=== PATIENT | male | born 1985 | race African-American/Black ===

== ENCOUNTER 2017-02-01 16:28 | Inpatient (IN) ==
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
[2017-02-01] MEDS ORDERED: ONDANSETRON 4 MG/2 ML VIAL IV PRN (19:16)
[2017-02-01] MEDS: DEXTROSE 5% NACL 0.45% 1,000 ML IV SCH (19:56)
[2017-02-01] MEDS: MEROPENEM 1,000 MG in SODIUM CHLORIDE 0.9% 100 ML IV SCH (19:56)
[2017-02-01] MEDS: ACETAMINOPHEN 325 MG/10.15 ML UDCUP PO PRN (19:58)
[2017-02-01 20:37] LABS: Apearance,Urine Slightly Hazy (Clear); Bilirubin,Urine Negative (Negative); Blood, Urine Negative (Negative); Glucose,Urine (UA) Negative (Negative); Granular Casts,Urine 2 /LPF (0-1); Hyaline Casts,Urine 2 /LPF (0-3); Ketones,Urine 20 mg/dL (Negative); Mucus,Urine Few /LPF (Occasional); Nitrite,Urine Positive (Negative); Protein,Urine 100 MG/DL; RBC,Urine 110 /HPF (0-4); Urine Color Amber (Yellow); Urine Urobilinogen < 2.0 EU/DL (0.2-1.0); WBC,Urine 44 /HPF (0-6)
[2017-02-01] MEDS: VANCOMYCIN INJ 1,000 MG in SODIUM CHLORIDE 0.9% 250 ML IV SCH (20:51)
[2017-02-01] MEDS: MAGNESIUM OXIDE 400 MG TABLET PEG SCH (20:51)
[2017-02-01] MEDS: cloNIDine 0.1 MG TABLET PEG SCH (20:51)
[2017-02-01] MEDS: VALPROIC ACID 250 MG/5 ML UDCUP PO SCH (20:51)
[2017-02-01] MEDS: GABAPENTIN 50 MG/ML 30 ML/BOTTLE PO SCH (20:56)
[2017-02-02] MEDS: ALBUTEROL/IPRATROPIUM 3 ML NEB RESP TX PRN (00:20)
[2017-02-02 00:59] LABS: Osmolality,Calculated 271.8 MOS/KG (273-304); Potassium 3.9 MMOL/L (3.5-5.1)
[2017-02-02] MEDS: MEROPENEM 1,000 MG in SODIUM CHLORIDE 0.9% 100 ML IV SCH ×3 (03:41→18:17)
[2017-02-02] MEDS: ALBUTEROL/IPRATROPIUM 3 ML NEB RESP TX SCH ×6 (03:42→23:10)
[2017-02-02 06:55] LABS: Basophils % 0.2 % (0.0-0.8); Eosinophils % 0.2 % (0.00-10.9); Hematocrit 31.9 VOL% (42.0-52.0); Hemoglobin 10.6 GM/DL (14.0-18.0); Immature Granulocytes % 0.6 %; Immature Granulocytes Absolute 0.07 #; Lymphocytes # 1.1 10*3/uL (1.4-4.0); Mean Corpuscular HGB Conc 33.2 GM/DL (32-36); Mean Corpuscular Hemoglobin 27 PG (27-34); Mean Corpuscular Volume 80.8 FL (87-102); Mean Platelet Volume 11.2 FL (9.6-12.0); Monocytes # 0.7 10*3/uL (0.11-0.8); Monocytes % 5.8 % (1.7-12.7); Neutrophils # 10.5 10*3/uL (1.4-7.4); Neutrophils % 84.2 % (38.7-73.9); Platelet Count 194 T/CUMM (130-400); Red Blood Count 3.95 MC/CUMM (3.8-5.5); Red Cell Distribution Width 16.2 % (9.3-17.3); White Blood Count 12.5 T/CUMM (4-12)
--- NOTE | 2017-02-02 07:06 | XRay Report ---
Referring Physician: Micky Macdonald Exam: XR chest 1V portable Date: February 02, 2017 at 12:09 AM Reason: Shortness of breath Comparison: Chest one view portable November 26, 2016 Findings: The cardiac silhouette is upper normal in size. A line again projects at the chest and may represent a cardiac lead. There is hazy density within the right lung, likely representing atelectasis and layering pleural fluid. However, there could also be pneumonia. Opacities are also seen at the left lung base and could represent atelectasis or pneumonia. No pneumothorax is identified. The osseous structures appear stable with surgical fusion of the cervical spine. Impression: There is diffuse hazy density at the right lung, likely representing a combination of layering pleural fluid and atelectasis. However, there could also be pneumonia. There are also opacities at the left lung base which could represent atelectasis or pneumonia. PROCEDURE INTERPRETED AT [facility] DEPARTMENT OF RADIOLOGY Final Report Signed by: Dr. Michele Gould
[2017-02-02 07:17] LABS: Hypochromasia 1+
[2017-02-02 07:18] LABS: Microcytosis 1+; Platelet Estimate Adequate; Target Cells Slight
[2017-02-02 07:29] LABS: Albumin 3.1 G/DL (3.4-5.0); Bilirubin,Total 0.8 MG/DL (0.2-1.0); Calcium 8.6 MG/DL (8.5-10.1); Osmolality,Calculated 273.7 MOS/KG (273-304); Potassium 3.9 MMOL/L (3.5-5.1); Total Protein 7.2 G/DL (6.4-8.3)
--- NOTE | 2017-02-02 08:00 | XRay Report ---
Referring Physician: Sacha Black MD Exam: XR chest 1V portable Date: February 02, 2017 at 5:33 AM Reason: Pneumonia Comparison: Chest one view portable February 02, 2017 at 12:09 AM Findings: The heart is stable in size. A lead again projects at the chest and may represent a cardiac lead. There are opacities within both lower lung zones, mainly on the right. This is concerning for atelectasis and possibly pneumonia. There is also mild right pleural fluid. No pneumothorax is identified. The osseous structures appear stable. Impression: There has been no significant change when considering differences in patient positioning. PROCEDURE INTERPRETED AT [facility] DEPARTMENT OF RADIOLOGY Final Report Signed by: Dr. Michele Gould
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
[2017-02-02] MEDS: VALPROIC ACID 250 MG/5 ML UDCUP PO SCH ×2 (08:35→20:50)
[2017-02-02] MEDS: LANSOPRAZOLE ODT 30 MG TABLET PEG SCH (08:36)
[2017-02-02] MEDS: MAGNESIUM OXIDE 400 MG TABLET PEG SCH ×3 (08:36→20:50)
[2017-02-02] MEDS: MULTIVITAMIN LIQUID (CENTRUM) 60 ML BOTTLE PEG SCH (08:36)
[2017-02-02] MEDS: ASPIRIN 325 MG TABLET PEG SCH (08:36)
[2017-02-02] MEDS: ZINC GLUCONATE 50 MG TABLET PEG SCH (08:36)
[2017-02-02] MEDS: POTASSIUM CHLORIDE 8 MEQ CAPSULE PO SCH (08:36)
[2017-02-02] MEDS: GABAPENTIN 50 MG/ML 30 ML/BOTTLE PO SCH ×3 (08:43→21:39)
[2017-02-02] MEDS: VANCOMYCIN INJ 1,000 MG in SODIUM CHLORIDE 0.9% 250 ML IV SCH ×2 (08:43→20:47)
[2017-02-02] MEDS: methylPREDNISolone SOD SUC 40 MG/1 ML VIAL IV SCH ×2 (08:43→20:44)
[2017-02-02] MEDS: ACETAMINOPHEN 325 MG/10.15 ML UDCUP PO PRN (12:06)
[2017-02-02] MEDS: DEXTROSE 5% NACL 0.45% 1,000 ML IV SCH (16:47)
[2017-02-02] MEDS: DORNASE ALFA 2.5 MG/2.5 ML VIAL RESP TX SCH (18:40)
[2017-02-02] MEDS: cloNIDine 0.1 MG TABLET PEG SCH (20:50)
[2017-02-03] MEDS: DEXTROSE 5% NACL 0.45% 1,000 ML IV SCH (01:37)
[2017-02-03] MEDS: ALBUTEROL/IPRATROPIUM 3 ML NEB RESP TX SCH ×6 (03:10→23:00)
[2017-02-03] MEDS: MEROPENEM 1,000 MG in SODIUM CHLORIDE 0.9% 100 ML IV SCH ×3 (04:46→18:22)
[2017-02-03] MEDS: DORNASE ALFA 2.5 MG/2.5 ML VIAL RESP TX SCH ×2 (07:45→18:30)
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
[2017-02-03] MEDS: MAGNESIUM OXIDE 400 MG TABLET PEG SCH ×3 (10:03→21:26)
[2017-02-03] MEDS: POTASSIUM CHLORIDE 8 MEQ CAPSULE PO SCH (10:03)
[2017-02-03] MEDS: LANSOPRAZOLE ODT 30 MG TABLET PEG SCH (10:03)
[2017-02-03] MEDS: MULTIVITAMIN LIQUID (CENTRUM) 60 ML BOTTLE PEG SCH (10:03)
[2017-02-03] MEDS: ZINC GLUCONATE 50 MG TABLET PEG SCH (10:03)
[2017-02-03] MEDS: ASPIRIN 325 MG TABLET PEG SCH (10:03)
[2017-02-03] MEDS: methylPREDNISolone SOD SUC 40 MG/1 ML VIAL IV SCH ×2 (10:04→21:25)
[2017-02-03] MEDS: GABAPENTIN 50 MG/ML 30 ML/BOTTLE PO SCH ×3 (10:04→21:44)
[2017-02-03] MEDS: VALPROIC ACID 250 MG/5 ML UDCUP PO SCH ×2 (10:04→21:27)
[2017-02-03] MEDS: VANCOMYCIN INJ 1,000 MG in SODIUM CHLORIDE 0.9% 250 ML IV SCH ×2 (10:06→21:25)
[2017-02-03] MEDS ORDERED: VANCOMYCIN INJ 750 MG in SODIUM CHLORIDE 0.9% 250 ML IV ONE (12:00)
[2017-02-03] MEDS: cloNIDine 0.1 MG TABLET PEG SCH (21:26)
[2017-02-04] MEDS: DEXTROSE 5% NACL 0.45% 1,000 ML IV SCH ×2 (00:56→21:17)
[2017-02-04] MEDS: ALBUTEROL/IPRATROPIUM 3 ML NEB RESP TX SCH ×6 (03:10→23:00)
[2017-02-04 06:35] LABS: Calcium 9.2 MG/DL (8.5-10.1); Magnesium 2.3 MG/DL (1.8-2.4); Osmolality,Calculated 275.7 MOS/KG (273-304); Potassium 4.4 MMOL/L (3.5-5.1)
[2017-02-04] MEDS: DORNASE ALFA 2.5 MG/2.5 ML VIAL RESP TX SCH ×2 (07:43→18:40)
[2017-02-04] MEDS: VANCOMYCIN INJ 1,000 MG in SODIUM CHLORIDE 0.9% 250 ML IV SCH ×3 (07:58→22:48)
[2017-02-04] MEDS: MEROPENEM 1,000 MG in SODIUM CHLORIDE 0.9% 100 ML IV SCH ×3 (07:58→18:09)
[2017-02-04] MEDS: POTASSIUM CHLORIDE 8 MEQ CAPSULE PO SCH (10:13)
[2017-02-04] MEDS: methylPREDNISolone SOD SUC 40 MG/1 ML VIAL IV SCH ×2 (10:13→21:17)
[2017-02-04] MEDS: VALPROIC ACID 250 MG/5 ML UDCUP PO SCH ×2 (10:13→21:19)
[2017-02-04] MEDS: ASPIRIN 325 MG TABLET PEG SCH (10:13)
[2017-02-04] MEDS: MAGNESIUM OXIDE 400 MG TABLET PEG SCH ×3 (10:14→21:19)
[2017-02-04] MEDS: LANSOPRAZOLE ODT 30 MG TABLET PEG SCH (10:14)
[2017-02-04] MEDS: ZINC GLUCONATE 50 MG TABLET PEG SCH (10:14)
[2017-02-04] MEDS: MULTIVITAMIN LIQUID (CENTRUM) 60 ML BOTTLE PEG SCH (10:15)
[2017-02-04] MEDS: GABAPENTIN 50 MG/ML 30 ML/BOTTLE PO SCH ×3 (11:50→21:20)
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
--- NOTE | 2017-02-04 14:03 | XRay Report ---
Referring Physician: Sacha Black MD Exam: XR chest 1V portable Date: February 04, 2017 at 6:17 AM Reason: Right lower lobe pneumonia Comparison: Chest one view portable February 02, 2017 Findings: The cardiac silhouette is upper normal in size, and a probable cardiac lead is again in place. Opacities are seen within both lower lung zones, mainly on the right. This is concerning for atelectasis and likely pneumonia. No pneumothorax is identified, but minimal right pleural fluid is suspected. The osseous structures appear stable with surgical fusion of the cervical spine. Impression: There has been no significant change. PROCEDURE INTERPRETED AT [facility] DEPARTMENT OF RADIOLOGY Final Report Signed by: Dr. Michele Gould
[2017-02-04] MEDS: cloNIDine 0.1 MG TABLET PEG SCH (21:19)
[2017-02-05] MEDS: ALBUTEROL/IPRATROPIUM 3 ML NEB RESP TX SCH ×6 (03:00→22:27)
[2017-02-05] MEDS: MEROPENEM 1,000 MG in SODIUM CHLORIDE 0.9% 100 ML IV SCH ×3 (03:49→18:24)
[2017-02-05] MEDS: VANCOMYCIN INJ 1,000 MG in SODIUM CHLORIDE 0.9% 250 ML IV SCH ×3 (06:47→23:20)
[2017-02-05] MEDS: ALBUTEROL/IPRATROPIUM 3 ML NEB RESP TX PRN ×2 (06:55→11:15)
[2017-02-05] MEDS: DORNASE ALFA 2.5 MG/2.5 ML VIAL RESP TX SCH ×2 (06:55→19:17)
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
[2017-02-05] MEDS: POTASSIUM CHLORIDE 8 MEQ CAPSULE PO SCH (09:11)
[2017-02-05] MEDS: VALPROIC ACID 250 MG/5 ML UDCUP PO SCH ×2 (09:11→21:40)
[2017-02-05] MEDS: ZINC GLUCONATE 50 MG TABLET PEG SCH (09:11)
[2017-02-05] MEDS: ASPIRIN 325 MG TABLET PEG SCH (09:11)
[2017-02-05] MEDS: MAGNESIUM OXIDE 400 MG TABLET PEG SCH ×3 (09:11→21:40)
[2017-02-05] MEDS: LANSOPRAZOLE ODT 30 MG TABLET PEG SCH (09:12)
[2017-02-05] MEDS: MULTIVITAMIN LIQUID (CENTRUM) 60 ML BOTTLE PEG SCH (09:12)
[2017-02-05] MEDS: GABAPENTIN 50 MG/ML 30 ML/BOTTLE PO SCH ×3 (09:12→21:41)
[2017-02-05] MEDS: methylPREDNISolone SOD SUC 40 MG/1 ML VIAL IV SCH (09:25)
[2017-02-05] MEDS: DEXTROSE 5% NACL 0.45% 1,000 ML IV SCH (17:46)
[2017-02-05] MEDS: ACETAMINOPHEN 325 MG/10.15 ML UDCUP PO PRN (20:50)
[2017-02-05] MEDS: cloNIDine 0.1 MG TABLET PEG SCH (21:40)
[2017-02-06] MEDS: ALBUTEROL/IPRATROPIUM 3 ML NEB RESP TX SCH ×6 (02:56→23:39)
[2017-02-06] MEDS: MEROPENEM 1,000 MG in SODIUM CHLORIDE 0.9% 100 ML IV SCH ×3 (03:47→18:23)
[2017-02-06] MEDS: DEXTROSE 5% NACL 0.45% 1,000 ML IV SCH ×2 (03:52→14:47)
[2017-02-06] MEDS: VANCOMYCIN INJ 1,000 MG in SODIUM CHLORIDE 0.9% 250 ML IV SCH ×3 (06:30→23:17)
[2017-02-06] MEDS: ZINC GLUCONATE 50 MG TABLET PEG SCH (08:49)
[2017-02-06] MEDS: VALPROIC ACID 250 MG/5 ML UDCUP PO SCH ×2 (08:49→21:24)
[2017-02-06] MEDS: LANSOPRAZOLE ODT 30 MG TABLET PEG SCH (08:49)
[2017-02-06] MEDS: ASPIRIN 325 MG TABLET PEG SCH (08:49)
[2017-02-06] MEDS: MAGNESIUM OXIDE 400 MG TABLET PEG SCH ×3 (08:50→21:24)
[2017-02-06] MEDS: POTASSIUM CHLORIDE 8 MEQ CAPSULE PO SCH (08:50)
[2017-02-06] MEDS: MULTIVITAMIN LIQUID (CENTRUM) 60 ML BOTTLE PEG SCH (08:50)
[2017-02-06] MEDS: methylPREDNISolone SOD SUC 40 MG/1 ML VIAL IV SCH (08:50)
[2017-02-06] MEDS: GABAPENTIN 50 MG/ML 30 ML/BOTTLE PO SCH ×3 (08:50→21:23)
--- NOTE | 2017-02-06 10:16 | Pulmonology Progress Note ---
Pulmonary - PN: Subj Interval history: Patient with quadraplegia, admitted for pneumonia and UTI. Clinically doing better, has a hard time coughing up sputum but doing a little better Exam (Progress Note) - Constitutional Vitals: Period Temp Pulse Resp BP Sys/Kwan Pulse Ox Last 24 Hr 97.8 F-100.7 F 70-128 18-20 101-126/59-87 92-99 General appearance: no acute distress - Head Head exam: Present: normal inspection - Eye Eye exam: Present: EOMI - Neck Neck exam: Present: normal inspection - Respiratory Respiratory exam: Present: clear to auscultation bilaterally - Cardiovascular Cardiovascular exam: Present: regular rate and rhythm Results - Labs CBC & BMP: 02/02/17 06:38 02/04/17 04:00 Lab Results: I have reviewed the past 24 hour labs Assessment and Plan (1) Urinary tract infection Status: Acute Assessment and plan: covered by current antibxs Current Visit: No (2) Quadriplegia Status: Chronic Current Visit: No (3) RLL pneumonia Status: Acute Assessment and plan: Improving with antibiotics. Continue current care for now Current Visit: Yes
[2017-02-06] MEDS: ACETAMINOPHEN 325 MG/10.15 ML UDCUP PO PRN (13:12)
[2017-02-06] MEDS: cloNIDine 0.1 MG TABLET PEG SCH (21:25)
[2017-02-07] MEDS: MEROPENEM 1,000 MG in SODIUM CHLORIDE 0.9% 100 ML IV SCH ×3 (03:18→18:08)
[2017-02-07] MEDS: ALBUTEROL/IPRATROPIUM 3 ML NEB RESP TX SCH ×6 (04:34→23:25)
[2017-02-07] MEDS: VANCOMYCIN INJ 1,000 MG in SODIUM CHLORIDE 0.9% 250 ML IV SCH ×3 (06:32→23:56)
[2017-02-07] MEDS: ASPIRIN 325 MG TABLET PEG SCH (08:54)
[2017-02-07] MEDS: MULTIVITAMIN LIQUID (CENTRUM) 60 ML BOTTLE PEG SCH (08:55)
[2017-02-07] MEDS: LANSOPRAZOLE ODT 30 MG TABLET PEG SCH (08:55)
[2017-02-07] MEDS: ZINC GLUCONATE 50 MG TABLET PEG SCH (08:55)
[2017-02-07] MEDS: MAGNESIUM OXIDE 400 MG TABLET PEG SCH ×3 (08:55→21:03)
[2017-02-07] MEDS: POTASSIUM CHLORIDE 8 MEQ CAPSULE PO SCH (08:55)
[2017-02-07] MEDS: VALPROIC ACID 250 MG/5 ML UDCUP PO SCH ×2 (08:55→21:03)
[2017-02-07] MEDS: GABAPENTIN 50 MG/ML 30 ML/BOTTLE PO SCH ×3 (08:55→21:02)
[2017-02-07] MEDS: methylPREDNISolone SOD SUC 40 MG/1 ML VIAL IV SCH (08:56)
[2017-02-07] MEDS: DEXTROSE 5% NACL 0.45% 1,000 ML IV SCH (08:57)
--- NOTE | 2017-02-07 11:19 | XRay Report ---
History: Right lower lobe pneumonia Date: 02/07/2017 Study: Chest x-ray AP portable Comparison exam: February 04, 2017 The left subclavian venous access catheter is stable in position. The cardiomediastinal silhouette is unchanged. There is some continued atelectasis/infiltrate in the right lower lung, thought to be improved when allowing for differences in inspiration and technique and rotation. There may be some mild pleural effusion on the right. The left lung is clear. Osseous structures are unchanged. Impression: Persistent but probably improved right lower lobe pneumonia PROCEDURE INTERPRETED AT [facility] DEPARTMENT OF RADIOLOGY Final Report Signed by: Dr. Velia Rawls
--- NOTE | 2017-02-07 11:37 | Pulmonology Progress Note ---
Pulmonary - PN: Subj Interval history: Patient doing well, no complaints, no overnight events Exam (Progress Note) - Constitutional Vitals: Period Temp Pulse Resp BP Sys/Kwan Pulse Ox Last 24 Hr 97.3 F-100.3 F 69-111 18-24 106-141/60-92 93-99 General appearance: no acute distress - Respiratory Respiratory exam: Absent: accessory muscle use, stridor, wheezes - Cardiovascular Cardiovascular exam: Present: regular rate and rhythm Results - Labs CBC & BMP: 02/02/17 06:38 02/04/17 04:00 Lab Results: I have reviewed the past 24 hour labs Assessment and Plan (1) Urinary tract infection Status: Acute Assessment and plan: covered by current antibxs Current Visit: No (2) Quadriplegia Status: Chronic Current Visit: No (3) RLL pneumonia Status: Acute Assessment and plan: Improving with antibiotics. Continue current care for now Current Visit: Yes
[2017-02-07] MEDS: cloNIDine 0.1 MG TABLET PEG SCH (21:03)
[2017-02-08] MEDS: ALBUTEROL/IPRATROPIUM 3 ML NEB RESP TX SCH ×5 (03:14→19:40)
[2017-02-08] MEDS: MEROPENEM 1,000 MG in SODIUM CHLORIDE 0.9% 100 ML IV SCH ×3 (03:50→18:04)
[2017-02-08 06:32] LABS: Basophils % 0.1 % (0.0-0.8); Eosinophils % 0.1 % (0.00-10.9); Hematocrit 33.8 VOL% (42.0-52.0); Immature Granulocytes % 1.9 %; Immature Granulocytes Absolute 0.21 #; Lymphocytes # 2.3 10*3/uL (1.4-4.0); Lymphocytes % 20.5 % (21.2-54.2); Mean Corpuscular HGB Conc 32.5 GM/DL (32-36); Mean Corpuscular Hemoglobin 27 PG (27-34); Mean Platelet Volume 9.6 FL (9.6-12.0); Monocytes # 0.8 10*3/uL (0.11-0.8); Monocytes % 6.9 % (1.7-12.7); NRBC # 0.08 10*3/uL; Neutrophils % 70.5 % (38.7-73.9); Platelet Count 299 T/CUMM (130-400); Red Blood Count 4.12 MC/CUMM (3.8-5.5); Red Cell Distribution Width 16.4 % (9.3-17.3); White Blood Count 11.3 T/CUMM (4-12)
[2017-02-08] MEDS: DEXTROSE 5% NACL 0.45% 1,000 ML IV SCH (06:56)
[2017-02-08] MEDS: VANCOMYCIN INJ 1,000 MG in SODIUM CHLORIDE 0.9% 250 ML IV SCH ×3 (06:57→23:36)
[2017-02-08 07:06] LABS: Calcium 8.9 MG/DL (8.5-10.1); Magnesium 2.4 MG/DL (1.8-2.4); Osmolality,Calculated 270.8 MOS/KG (273-304); Potassium 4.3 MMOL/L (3.5-5.1)
[2017-02-08] MEDS: MULTIVITAMIN LIQUID (CENTRUM) 60 ML BOTTLE PEG SCH (07:59)
[2017-02-08] MEDS: methylPREDNISolone SOD SUC 40 MG/1 ML VIAL IV SCH (08:01)
[2017-02-08] MEDS: ZINC GLUCONATE 50 MG TABLET PEG SCH (08:01)
[2017-02-08] MEDS: LANSOPRAZOLE ODT 30 MG TABLET PEG SCH (08:01)
[2017-02-08] MEDS: GABAPENTIN 50 MG/ML 30 ML/BOTTLE PO SCH ×3 (08:01→20:57)
[2017-02-08] MEDS: POTASSIUM CHLORIDE 8 MEQ CAPSULE PO SCH (08:02)
[2017-02-08] MEDS: ASPIRIN 325 MG TABLET PEG SCH (08:02)
[2017-02-08] MEDS: MAGNESIUM OXIDE 400 MG TABLET PEG SCH ×3 (08:02→20:56)
[2017-02-08] MEDS: VALPROIC ACID 250 MG/5 ML UDCUP PO SCH ×2 (08:02→20:56)
--- NOTE | 2017-02-08 14:25 | Pulmonology Progress Note ---
Pulmonary - PN: Subj Interval history: Patient states breathing is ok today. Does complain that his hands are hot. Mother at bedside, was concerned about his inability to cough up secretions. Discussed this at length. Patient overall improving Exam (Progress Note) - Constitutional Vitals: Period Temp Pulse Resp BP Sys/Kwan Pulse Ox Last 24 Hr 97.2 F-98.9 F 74-132 17-22 89-129/63-90 93-99 General appearance: no acute distress - Head Head exam: Present: normal inspection - Respiratory Respiratory exam: Absent: accessory muscle use, stridor, wheezes - Cardiovascular Cardiovascular exam: Present: regular rate and rhythm - GI/Abdominal GI/Abdominal exam: Present: soft Results - Labs CBC & BMP: 02/08/17 06:11 02/08/17 06:11 Lab Results: I have reviewed the past 24 hour labs - Diagnostic Findings Procedure: Chest x-ray: image reviewed by me, report reviewed by me (reviewed from yesterday) Assessment and Plan (1) Urinary tract infection Status: Acute Assessment and plan: covered by current antibxs Current Visit: No (2) Quadriplegia Status: Chronic Current Visit: No (3) RLL pneumonia Status: Acute Assessment and plan: Improving with antibiotics. Continue current care for now. Patient getting CPT with nebs to help with clearance. Current Visit: Yes
[2017-02-08] MEDS: cloNIDine 0.1 MG TABLET PEG SCH (21:54)
[2017-02-09] MEDS: ALBUTEROL/IPRATROPIUM 3 ML NEB RESP TX SCH ×6 (00:20→20:00)
[2017-02-09] MEDS: MEROPENEM 1,000 MG in SODIUM CHLORIDE 0.9% 100 ML IV SCH ×3 (03:45→18:10)
[2017-02-09] MEDS: DEXTROSE 5% NACL 0.45% 1,000 ML IV SCH ×2 (06:03→21:55)
--- NOTE | 2017-02-09 06:39 | XRay Report ---
XR chest 1V portable Indication: Right lower lobe pneumonia. Comparison: Chest x-ray 02/07/2017 Technique: Portable AP chest was performed. Findings: Some improvement in aeration of the left cardiophrenic angle is demonstrated. Haziness in the right lung base as well as elevation of the right hemidiaphragm remain present. Chest otherwise demonstrates little change. Impression: 1. Minimal improvement in aeration of the left cardiophrenic angle is demonstrated. 2. Little change within the right lung base is suggested. 02/09/2017 6:36 AM PROCEDURE INTERPRETED AT [facility] DEPARTMENT OF RADIOLOGY Final Report Signed by: Dr. Otto Boyd
[2017-02-09] MEDS: VANCOMYCIN INJ 1,000 MG in SODIUM CHLORIDE 0.9% 250 ML IV SCH ×3 (06:41→23:17)
[2017-02-09 06:45] LABS: Calcium 8.9 MG/DL (8.5-10.1); Magnesium 2.4 MG/DL (1.8-2.4); Osmolality,Calculated 266.1 MOS/KG (273-304); Potassium 4.3 MMOL/L (3.5-5.1)
[2017-02-09] MEDS: GABAPENTIN 50 MG/ML 30 ML/BOTTLE PO SCH ×3 (08:26→21:40)
[2017-02-09] MEDS: MULTIVITAMIN LIQUID (CENTRUM) 60 ML BOTTLE PEG SCH (08:27)
[2017-02-09] MEDS: ASPIRIN 325 MG TABLET PEG SCH (08:30)
[2017-02-09] MEDS: LANSOPRAZOLE ODT 30 MG TABLET PEG SCH (08:30)
[2017-02-09] MEDS: methylPREDNISolone SOD SUC 40 MG/1 ML VIAL IV SCH (08:30)
[2017-02-09] MEDS: ZINC GLUCONATE 50 MG TABLET PEG SCH (08:30)
[2017-02-09] MEDS: MAGNESIUM OXIDE 400 MG TABLET PEG SCH ×3 (08:30→21:40)
[2017-02-09] MEDS: POTASSIUM CHLORIDE 8 MEQ CAPSULE PO SCH (08:30)
[2017-02-09] MEDS: VALPROIC ACID 250 MG/5 ML UDCUP PO SCH ×2 (08:30→21:40)
--- NOTE | 2017-02-09 09:30 | XRay Report ---
XR chest 1V portable Indication: Follow-up pneumonia Comparison: Chest x-ray dated February 09, 2017 Technique: Frontal views of the chest Findings: Left-sided central venous catheter appears grossly unchanged. The cardiomediastinal silhouette is stable in configuration. Continued right basilar atelectasis/consolidation. Small right pleural fluid not excluded. Osseous and surrounding soft tissue structures appear grossly unchanged. IMPRESSION: No significant interval change. PROCEDURE INTERPRETED AT [facility] DEPARTMENT OF RADIOLOGY Final Report Signed by: Dr Chino Ron
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
[2017-02-09] MEDS: cloNIDine 0.1 MG TABLET PEG SCH (21:40)
[2017-02-10] MEDS: ALBUTEROL/IPRATROPIUM 3 ML NEB RESP TX SCH ×4 (00:10→11:43)
[2017-02-10] MEDS: MEROPENEM 1,000 MG in SODIUM CHLORIDE 0.9% 100 ML IV SCH (04:38)
[2017-02-10] MEDS: VANCOMYCIN INJ 1,000 MG in SODIUM CHLORIDE 0.9% 250 ML IV SCH (07:06)
[2017-02-10] MEDS: methylPREDNISolone SOD SUC 40 MG/1 ML VIAL IV SCH (09:10)
[2017-02-10] MEDS: ASPIRIN 325 MG TABLET PEG SCH (09:11)
[2017-02-10] MEDS: MAGNESIUM OXIDE 400 MG TABLET PEG SCH (09:11)
[2017-02-10] MEDS: LANSOPRAZOLE ODT 30 MG TABLET PEG SCH (09:11)
[2017-02-10] MEDS: POTASSIUM CHLORIDE 8 MEQ CAPSULE PO SCH (09:11)
[2017-02-10] MEDS: ZINC GLUCONATE 50 MG TABLET PEG SCH (09:11)
[2017-02-10] MEDS: MULTIVITAMIN LIQUID (CENTRUM) 60 ML BOTTLE PEG SCH (09:12)
[2017-02-10] MEDS: GABAPENTIN 50 MG/ML 30 ML/BOTTLE PO SCH (09:12)
[2017-02-10] MEDS: VALPROIC ACID 250 MG/5 ML UDCUP PO SCH (09:12)
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
[2017-02-10 11:40] VITALS: BP 93/57
[2017-02-11] MEDS ORDERED: LEVOFLOXACIN 250 MG TABLET PO SCH (09:00)
== END 2017-02-10 14:10 | disposition home or self-care (01) | DRG 193 ==
LOC: N.5E 17:26
PROVIDERS: ADMIT Internal Medicine Pulmonary Disease; ATTEND Internal Medicine Pulmonary Disease

== ENCOUNTER 2017-08-18 00:50 | Inpatient (IN) ==
[2017-08-18] MEDS ORDERED: cefTRIAXone 1,000 MG in SODIUM CHLORIDE 0.9% 100 ML IV STA (01:36)
[2017-08-18] MEDS ORDERED: SODIUM CHLORIDE 0.9% 500 ML IV STA (01:36)
[2017-08-18 02:15] LABS: Basophils % 0.6 % (0.0-0.8); Eosinophils # 0.2 10*3/uL (0.0-0.87); Eosinophils % 2.3 % (0.00-10.9); Hematocrit 39.3 VOL% (42.0-52.0); Hemoglobin 12.7 GM/DL (14.0-18.0); Immature Granulocytes % 0.8 %; Immature Granulocytes Absolute 0.06 #; Lymphocytes # 1.7 10*3/uL (1.4-4.0); Lymphocytes % 23.3 % (21.2-54.2); Mean Corpuscular HGB Conc 32.3 GM/DL (32-36); Mean Corpuscular Hemoglobin 26 PG (27-34); Mean Corpuscular Volume 81.4 FL (87-102); Mean Platelet Volume 10.1 FL (9.6-12.0); Monocytes # 0.6 10*3/uL (0.11-0.8); Monocytes % 8.1 % (1.7-12.7); Neutrophils # 4.7 10*3/uL (1.4-7.4); Neutrophils % 64.9 % (38.7-73.9); Platelet Count 340 T/CUMM (130-400); Red Blood Count 4.83 MC/CUMM (3.8-5.5); Red Cell Distribution Width 17.3 % (9.3-17.3); White Blood Count 7.2 T/CUMM (4-12)
[2017-08-18 02:26] LABS: INR 1.1; PT Patient Result 11.7 SECS
[2017-08-18 02:43] LABS: Alanine Aminotransferase 84 U/L (16-61); Albumin 3.2 G/DL (3.4-5.0); Alkaline Phosphatase 124 U/L (45-117); Amylase 54 U/L (25-115); Aspartate Amino Transferase 41 U/L (0-37); Bilirubin,Total < 0.39 MG/DL (0.2-1.0); Blood Urea Nitrogen 13 MG/DL (7-18); Calcium 9.5 MG/DL (8.5-10.1); Glucose 94 MG/DL (74-106); Osmolality,Calculated 272.8 MOS/KG (273-304); Potassium 4.8 MMOL/L (3.5-5.1); Sodium 137 MMOL/L (136-145); Troponin I Only 0.024 NG/ML (0.00-0.045)
[2017-08-18] MEDS ORDERED: cefTRIAXone 1,000 MG VIAL ONE (02:46)
[2017-08-18 03:43] LABS: Apearance,Urine CLOUDY (Clear); Bilirubin,Urine Negative (Negative); Blood, Urine Large mg/dL (Negative); Glucose,Urine (UA) Negative (Negative); Ketones,Urine Negative (Negative); Nitrite,Urine Negative (Negative); Protein,Urine 100 MG/DL; RBC,Urine 1751 /HPF (0-4); Squamous Epithelial Cell,Urine Few /HPF (0-10); Urine Color Red (Yellow); Urine Specific Gravity 1.019 (1.001-1.035); Urine Urobilinogen < 2.0 EU/DL (0.2-1.0); WBC,Urine 452 /HPF (0-6)
[2017-08-18 03:53] LABS: Sedimentation Rate-Westergren 20 MM/HR (0-15)
[2017-08-18] MEDS ORDERED: ONDANSETRON 4 MG/2 ML VIAL IV PRN (05:41)
[2017-08-18] MEDS: SODIUM CHLORIDE 0.9% 1,000 ML IV SCH ×2 (06:57→21:15)
[2017-08-18] MEDS ORDERED: CEFEPIME 2,000 MG in SYRINGE 1 EACH IV SCH (08:00)
[2017-08-18] MEDS: POTASSIUM CHLORIDE 20 MEQ/15 ML UDCUP PEG SCH (13:55)
[2017-08-18] MEDS: MULTIVITAMIN LIQUID (CENTRUM) 60 ML BOTTLE PEG SCH (13:55)
[2017-08-18] MEDS: GABAPENTIN 50 MG/ML 30 ML/BOTTLE PEG SCH ×3 (13:55→21:19)
[2017-08-18] MEDS: ASPIRIN EC 325 MG TABLET PO SCH (13:56)
[2017-08-18] MEDS: ZINC GLUCONATE 50 MG TABLET PEG SCH (13:56)
[2017-08-18] MEDS: VALPROIC ACID 250 MG/5 ML UDCUP PEG SCH ×2 (13:56→21:15)
[2017-08-18] MEDS: LANSOPRAZOLE ODT 30 MG TABLET PEG SCH (13:56)
[2017-08-18] MEDS: MAGNESIUM OXIDE 400 MG TABLET PEG SCH ×3 (13:56→21:16)
[2017-08-18] MEDS: MEROPENEM 500 MG in SYRINGE 1 EACH IV SCH ×2 (14:01→21:16)
[2017-08-18] MEDS: cloNIDine 0.1 MG TABLET PEG SCH (21:16)
[2017-08-19] MEDS: MEROPENEM 500 MG in SYRINGE 1 EACH IV SCH ×3 (05:18→21:58)
[2017-08-19 06:20] LABS: Basophils % 0.5 % (0.0-0.8); Eosinophils # 0.1 10*3/uL (0.0-0.87); Eosinophils % 1.7 % (0.00-10.9); Hematocrit 34.1 VOL% (42.0-52.0); Hemoglobin 11.1 GM/DL (14.0-18.0); Immature Granulocytes % 0.5 %; Immature Granulocytes Absolute 0.03 #; Lymphocytes # 1.8 10*3/uL (1.4-4.0); Lymphocytes % 28.3 % (21.2-54.2); Mean Corpuscular HGB Conc 32.6 GM/DL (32-36); Mean Corpuscular Hemoglobin 26 PG (27-34); Mean Platelet Volume 10.4 FL (9.6-12.0); Monocytes # 0.5 10*3/uL (0.11-0.8); Monocytes % 8.3 % (1.7-12.7); Neutrophils # 3.9 10*3/uL (1.4-7.4); Neutrophils % 60.7 % (38.7-73.9); Platelet Count 326 T/CUMM (130-400); Red Blood Count 4.21 MC/CUMM (3.8-5.5); Red Cell Distribution Width 17.6 % (9.3-17.3); White Blood Count 6.5 T/CUMM (4-12)
[2017-08-19 06:54] LABS: Magnesium 2.2 MG/DL (1.8-2.4); Phosphorous 4.2 MG/DL (2.5-4.9); Prealbumin 15.3 MG/DL (20-40)
[2017-08-19 07:03] LABS: Calcium 8.9 MG/DL (8.5-10.1); Osmolality,Calculated 275.4 MOS/KG (273-304); Potassium 4.5 MMOL/L (3.5-5.1)
[2017-08-19] MEDS: ASPIRIN EC 325 MG TABLET PO SCH (08:24)
[2017-08-19] MEDS: POTASSIUM CHLORIDE 20 MEQ/15 ML UDCUP PEG SCH (08:24)
[2017-08-19] MEDS: GABAPENTIN 50 MG/ML 30 ML/BOTTLE PEG SCH ×3 (08:24→21:58)
[2017-08-19] MEDS: MULTIVITAMIN LIQUID (CENTRUM) 60 ML BOTTLE PEG SCH (08:24)
[2017-08-19] MEDS: VALPROIC ACID 250 MG/5 ML UDCUP PEG SCH ×2 (08:24→21:58)
[2017-08-19] MEDS: LANSOPRAZOLE ODT 30 MG TABLET PEG SCH (08:24)
[2017-08-19] MEDS: MAGNESIUM OXIDE 400 MG TABLET PEG SCH ×3 (08:24→21:58)
[2017-08-19] MEDS: ZINC GLUCONATE 50 MG TABLET PEG SCH (08:27)
[2017-08-19] MEDS: SODIUM CHLORIDE 0.9% 1,000 ML IV SCH ×2 (09:48→23:04)
[2017-08-19] MEDS: cloNIDine 0.1 MG TABLET PEG SCH (21:58)
[2017-08-20] MEDS: MEROPENEM 500 MG in SYRINGE 1 EACH IV SCH ×3 (04:08→22:35)
[2017-08-20] MEDS: LANSOPRAZOLE ODT 30 MG TABLET PEG SCH (09:41)
[2017-08-20] MEDS: MULTIVITAMIN LIQUID (CENTRUM) 60 ML BOTTLE PEG SCH (09:41)
[2017-08-20] MEDS: ASPIRIN EC 325 MG TABLET PO SCH (09:41)
[2017-08-20] MEDS: VALPROIC ACID 250 MG/5 ML UDCUP PEG SCH ×2 (09:41→22:35)
[2017-08-20] MEDS: ZINC GLUCONATE 50 MG TABLET PEG SCH (09:41)
[2017-08-20] MEDS: GABAPENTIN 50 MG/ML 30 ML/BOTTLE PEG SCH ×3 (09:41→22:35)
[2017-08-20] MEDS: MAGNESIUM OXIDE 400 MG TABLET PEG SCH ×3 (09:41→22:36)
[2017-08-20] MEDS: POTASSIUM CHLORIDE 20 MEQ/15 ML UDCUP PEG SCH (09:41)
[2017-08-20] MEDS: SODIUM CHLORIDE 0.9% 1,000 ML IV SCH (13:20)
[2017-08-20] MEDS: cloNIDine 0.1 MG TABLET PEG SCH (22:36)
[2017-08-21] MEDS: SODIUM CHLORIDE 0.9% 1,000 ML IV SCH ×2 (02:25→15:00)
[2017-08-21] MEDS: MEROPENEM 500 MG in SYRINGE 1 EACH IV SCH ×2 (02:31→12:25)
[2017-08-21] MEDS ORDERED: FLUCONAZOLE INJ 200 MG in PREMIX 1 EACH IV ONE (09:52)
[2017-08-21] MEDS: POTASSIUM CHLORIDE 20 MEQ/15 ML UDCUP PEG SCH (10:47)
[2017-08-21] MEDS: MULTIVITAMIN LIQUID (CENTRUM) 60 ML BOTTLE PEG SCH (10:47)
[2017-08-21] MEDS: LANSOPRAZOLE ODT 30 MG TABLET PEG SCH (10:47)
[2017-08-21] MEDS: ZINC GLUCONATE 50 MG TABLET PEG SCH (10:47)
[2017-08-21] MEDS: VALPROIC ACID 250 MG/5 ML UDCUP PEG SCH (10:47)
[2017-08-21] MEDS: MAGNESIUM OXIDE 400 MG TABLET PEG SCH ×2 (10:47→16:06)
[2017-08-21] MEDS: GABAPENTIN 50 MG/ML 30 ML/BOTTLE PEG SCH ×2 (10:47→16:07)
[2017-08-21] MEDS: ASPIRIN EC 325 MG TABLET PO SCH (10:47)
[2017-08-21 14:48] VITALS: BP 99/54
== END 2017-08-21 18:00 | disposition home health service (06) | DRG 698 ==
LOC: EDUNIT# → N.ED 00:50 → SUATTDRO 05:30 → N.EDINP 05:30 → N.5E 06:16
PROVIDERS: ADMIT Internal Medicine; ATTEND Hospitalist

== ENCOUNTER 2017-11-13 10:48 | Inpatient (IN) ==
[2017-11-13 11:33] LABS: Basophils % 0.4 % (0.0-0.8); Eosinophils # 0.1 10*3/uL (0.0-0.87); Eosinophils % 1.2 % (0.00-10.9); Hematocrit 34.7 VOL% (42.0-52.0); Hemoglobin 11.7 GM/DL (14.0-18.0); Immature Granulocytes % 0.3 %; Immature Granulocytes Absolute 0.02 #; Lymphocytes # 1.8 10*3/uL (1.4-4.0); Lymphocytes % 27.2 % (21.2-54.2); Mean Corpuscular HGB Conc 33.7 GM/DL (32-36); Mean Corpuscular Hemoglobin 26 PG (27-34); Mean Platelet Volume 10.3 FL (9.6-12.0); Monocytes # 0.7 10*3/uL (0.11-0.8); Monocytes % 9.8 % (1.7-12.7); Neutrophils # 4.1 10*3/uL (1.4-7.4); Neutrophils % 61.1 % (38.7-73.9); Platelet Count 268 T/CUMM (130-400); Red Blood Count 4.45 MC/CUMM (3.8-5.5); Red Cell Distribution Width 15.4 % (9.3-17.3); White Blood Count 6.8 T/CUMM (4-12)
[2017-11-13 11:58] LABS: Amorphous Crystals,Urine Occasional /HPF (Few); Apearance,Urine Slightly Hazy (Clear); Bacteria,Urine Occasional /HPF (Few); Bilirubin,Urine Negative (Negative); Blood, Urine Negative (Negative); Glucose,Urine (UA) Negative (Negative); Ketones,Urine Negative (Negative); Mucus,Urine Occasional /LPF (Occasional); Nitrite,Urine Negative (Negative); Protein,Urine Negative; RBC,Urine 5 /HPF (0-4); Squamous Epithelial Cell,Urine Occasional /HPF (0-10); Urine Color Yellow (Yellow); Urine Specific Gravity 1.011 (1.001-1.035); Urine Urobilinogen < 2.0 EU/DL (0.2-1.0); WBC,Urine 41 /HPF (0-6)
[2017-11-13 12:03] LABS: Alanine Aminotransferase 35 U/L (16-61); Albumin 3.2 G/DL (3.4-5.0); Alkaline Phosphatase 98 U/L (45-117); Aspartate Amino Transferase 23 U/L (0-37); Bilirubin,Total < 0.39 MG/DL (0.2-1.0); Blood Urea Nitrogen 8 MG/DL (7-18); Calcium 8.6 MG/DL (8.5-10.1); Glucose 163 MG/DL (74-106); Osmolality,Calculated 259.9 MOS/KG (273-304); Potassium 4.3 MMOL/L (3.5-5.1); Sodium 129 MMOL/L (136-145); Total Protein 7.6 G/DL (6.4-8.3)
[2017-11-13 12:07] LABS: Lactic Acid 2.4 MMOL/L (0.4-2.0)
[2017-11-13] MEDS ORDERED: SODIUM CHLORIDE 0.9% 1,000 ML IV STA (12:49)
[2017-11-13] MEDS ORDERED: ONDANSETRON 4 MG/2 ML VIAL IV PRN (13:57)
[2017-11-13] MEDS ORDERED: SODIUM CHLORIDE 0.9% 1,000 ML IV ONE (14:02)
[2017-11-13] MEDS: SODIUM CHLORIDE 0.9% 1,000 ML IV SCH (17:40)
[2017-11-13] MEDS: PIPERACILLIN/TAZOBACTAM 3,375 MG in SODIUM CHLORIDE 0.9% 100 ML IV SCH (17:40)
[2017-11-13] MEDS: GABAPENTIN 50 MG/ML 30 ML/BOTTLE PEG SCH ×2 (17:53→21:09)
[2017-11-13] MEDS: ALBUTEROL/IPRATROPIUM 3 ML NEB RESP TX PRN (18:14)
[2017-11-14] MEDS: PIPERACILLIN/TAZOBACTAM 3,375 MG in SODIUM CHLORIDE 0.9% 100 ML IV SCH ×3 (01:11→19:06)
[2017-11-14 06:11] LABS: Basophils % 0.2 % (0.0-0.8); Eosinophils # 0.2 10*3/uL (0.0-0.87); Eosinophils % 3.5 % (0.00-10.9); Hematocrit 33.1 VOL% (42.0-52.0); Hemoglobin 10.9 GM/DL (14.0-18.0); Immature Granulocytes % 0.4 %; Immature Granulocytes Absolute 0.02 #; Lymphocytes # 0.9 10*3/uL (1.4-4.0); Lymphocytes % 17.4 % (21.2-54.2); Mean Corpuscular HGB Conc 32.9 GM/DL (32-36); Mean Corpuscular Hemoglobin 26 PG (27-34); Mean Corpuscular Volume 78.6 FL (87-102); Mean Platelet Volume 10.5 FL (9.6-12.0); Monocytes # 0.7 10*3/uL (0.11-0.8); Monocytes % 12.8 % (1.7-12.7); Neutrophils # 3.4 10*3/uL (1.4-7.4); Neutrophils % 65.7 % (38.7-73.9); Platelet Count 246 T/CUMM (130-400); Red Blood Count 4.21 MC/CUMM (3.8-5.5); Red Cell Distribution Width 15.5 % (9.3-17.3); White Blood Count 5.2 T/CUMM (4-12)
[2017-11-14] MEDS: SODIUM CHLORIDE 0.9% 1,000 ML IV SCH ×3 (06:29→19:13)
[2017-11-14 06:45] LABS: Calcium 8.4 MG/DL (8.5-10.1); Potassium 4.4 MMOL/L (3.5-5.1)
[2017-11-14] MEDS: ASPIRIN EC 325 MG TABLET PO SCH (10:45)
[2017-11-14] MEDS: GABAPENTIN 50 MG/ML 30 ML/BOTTLE PEG SCH ×3 (10:47→21:02)
[2017-11-14] MEDS ORDERED: guaiFENesin 200 MG/10 ML UDCUP PO PRN (14:18)
[2017-11-14] MEDS: ACETAMINOPHEN 325 MG TABLET PO PRN (15:39)
[2017-11-15] MEDS: PIPERACILLIN/TAZOBACTAM 3,375 MG in SODIUM CHLORIDE 0.9% 100 ML IV SCH ×2 (01:14→09:30)
[2017-11-15] MEDS: ALBUTEROL/IPRATROPIUM 3 ML NEB RESP TX PRN ×2 (04:12→20:15)
[2017-11-15 06:30] LABS: Calcium 8.8 MG/DL (8.5-10.1); Potassium 4.3 MMOL/L (3.5-5.1); Prealbumin 15.9 MG/DL (20-40)
[2017-11-15] MEDS: SODIUM CHLORIDE 0.9% 1,000 ML IV SCH ×3 (06:37→14:00)
[2017-11-15] MEDS: ACETAMINOPHEN 325 MG TABLET PO PRN (07:32)
[2017-11-15] MEDS: ASPIRIN EC 325 MG TABLET PO SCH (09:02)
[2017-11-15] MEDS: GABAPENTIN 50 MG/ML 30 ML/BOTTLE PEG SCH ×3 (09:05→20:28)
[2017-11-15] MEDS: ceFAZolin 2,000 MG in PREMIX 1 EACH IV SCH ×2 (13:25→18:31)
[2017-11-16] MEDS: SODIUM CHLORIDE 0.9% 1,000 ML IV SCH ×5 (00:23→21:02)
[2017-11-16] MEDS: ACETAMINOPHEN 325 MG TABLET PO PRN ×2 (01:01→17:15)
[2017-11-16] MEDS: ceFAZolin 2,000 MG in PREMIX 1 EACH IV SCH ×3 (01:41→18:35)
[2017-11-16] MEDS: ALBUTEROL/IPRATROPIUM 3 ML NEB RESP TX PRN ×2 (04:16→13:20)
[2017-11-16] MEDS: ASPIRIN EC 325 MG TABLET PO SCH (10:48)
[2017-11-16] MEDS: GABAPENTIN 50 MG/ML 30 ML/BOTTLE PEG SCH ×3 (10:49→20:53)
[2017-11-16] MEDS ORDERED: MAGNESIUM HYDROXIDE SUSP 30 ML UDCUP PO PRN (18:34)
[2017-11-16] MEDS: MAGNESIUM CITRATE 300 ML BOTTLE PO PRN (19:21)
[2017-11-17] MEDS: ceFAZolin 2,000 MG in PREMIX 1 EACH IV SCH ×3 (01:44→18:50)
[2017-11-17] MEDS: ALBUTEROL/IPRATROPIUM 3 ML NEB RESP TX PRN ×2 (04:42→14:30)
[2017-11-17] MEDS ORDERED: LEVOFLOXACIN INJ 500 MG in PREMIX 1 EACH IV SCH (07:00)
[2017-11-17] MEDS: SODIUM CHLORIDE 0.9% 1,000 ML IV SCH ×3 (07:04→21:03)
[2017-11-17] MEDS: ACETAMINOPHEN 325 MG TABLET PO PRN ×3 (10:01→23:56)
[2017-11-17] MEDS: GABAPENTIN 50 MG/ML 30 ML/BOTTLE PEG SCH ×3 (10:01→21:06)
[2017-11-17] MEDS: ASPIRIN EC 325 MG TABLET PO SCH (10:01)
[2017-11-18] MEDS: ceFAZolin 2,000 MG in PREMIX 1 EACH IV SCH ×3 (02:41→18:48)
[2017-11-18 06:57] LABS: Calcium 8.8 MG/DL (8.5-10.1); Potassium 4.1 MMOL/L (3.5-5.1)
[2017-11-18] MEDS: SODIUM CHLORIDE 0.9% 1,000 ML IV SCH (06:58)
[2017-11-18] MEDS: CIPROFLOXACIN INJ 400 MG in PREMIX 1 EACH IV SCH ×2 (07:37→19:18)
[2017-11-18] MEDS: GABAPENTIN 50 MG/ML 30 ML/BOTTLE PEG SCH ×3 (11:29→21:10)
[2017-11-18] MEDS: ASPIRIN EC 325 MG TABLET PO SCH (11:30)
[2017-11-18] MEDS: MAGNESIUM CITRATE 300 ML BOTTLE PO PRN (19:49)
[2017-11-19] MEDS: ceFAZolin 2,000 MG in PREMIX 1 EACH IV SCH (02:53)
[2017-11-19] MEDS: ACETAMINOPHEN 325 MG TABLET PO PRN ×3 (06:19→15:54)
[2017-11-19] MEDS: CIPROFLOXACIN INJ 400 MG in PREMIX 1 EACH IV SCH ×2 (06:20→20:51)
[2017-11-19] MEDS: SODIUM CHLORIDE 0.9% IV SCH ×3 (10:26→22:10)
[2017-11-19] MEDS: NAFCILLIN IV SCH ×3 (10:26→22:10)
[2017-11-19] MEDS: GABAPENTIN 50 MG/ML 30 ML/BOTTLE PEG SCH ×3 (10:27→21:01)
[2017-11-19] MEDS ORDERED: DICLOXACILLIN 250 MG CAPSULE PO SCH (12:00)
[2017-11-19] MEDS: ASPIRIN EC 325 MG TABLET PO SCH (15:54)
[2017-11-20] MEDS: NAFCILLIN IV SCH ×4 (02:59→22:55)
[2017-11-20] MEDS: SODIUM CHLORIDE 0.9% IV SCH ×4 (02:59→22:55)
[2017-11-20] MEDS: ALBUTEROL/IPRATROPIUM 3 ML NEB RESP TX PRN (03:31)
[2017-11-20] MEDS: CIPROFLOXACIN INJ 400 MG in PREMIX 1 EACH IV SCH ×2 (06:25→21:48)
[2017-11-20] MEDS: LANSOPRAZOLE ODT 30 MG TABLET PEG SCH (10:44)
[2017-11-20] MEDS: VALPROIC ACID 250 MG/5 ML UDCUP PEG SCH ×2 (10:44→21:48)
[2017-11-20] MEDS: ASPIRIN EC 325 MG TABLET PO SCH (10:45)
[2017-11-20] MEDS: GABAPENTIN 50 MG/ML 30 ML/BOTTLE PEG SCH ×3 (10:45→21:48)
[2017-11-20] MEDS ORDERED: FUROSEMIDE 40 MG/4 ML VIAL IV ONE (12:03)
[2017-11-20] MEDS ORDERED: ALBUTEROL/IPRATROPIUM 3 ML NEB RESP TX SCH (12:03)
[2017-11-20] MEDS: ALBUTEROL/IPRATROPIUM 3 ML NEB RESP TX SCH ×2 (12:10→20:03)
[2017-11-20] MEDS: ACETAMINOPHEN 325 MG TABLET PO PRN (16:13)
[2017-11-21] MEDS: ALBUTEROL/IPRATROPIUM 3 ML NEB RESP TX SCH ×4 (03:00→20:35)
[2017-11-21] MEDS: NAFCILLIN IV SCH ×3 (03:33→18:25)
[2017-11-21] MEDS: SODIUM CHLORIDE 0.9% IV SCH ×3 (03:33→18:25)
[2017-11-21] MEDS: CIPROFLOXACIN INJ 400 MG in PREMIX 1 EACH IV SCH ×2 (06:10→21:25)
[2017-11-21] MEDS: VALPROIC ACID 250 MG/5 ML UDCUP PEG SCH ×2 (09:46→21:25)
[2017-11-21] MEDS: ASPIRIN EC 325 MG TABLET PO SCH (09:46)
[2017-11-21] MEDS: LANSOPRAZOLE ODT 30 MG TABLET PEG SCH (09:46)
[2017-11-21] MEDS: GABAPENTIN 50 MG/ML 30 ML/BOTTLE PEG SCH ×3 (09:46→21:24)
[2017-11-21 10:03] LABS: Basophils # 0.1 10*3/uL (0.0-0.2); Basophils % 0.6 % (0.0-0.8); Eosinophils # 0.2 10*3/uL (0.0-0.87); Eosinophils % 2.2 % (0.00-10.9); Hematocrit 33.8 VOL% (42.0-52.0); Hemoglobin 10.9 GM/DL (14.0-18.0); Immature Granulocytes % 0.2 %; Immature Granulocytes Absolute 0.02 #; Lymphocytes # 1.5 10*3/uL (1.4-4.0); Lymphocytes % 16.8 % (21.2-54.2); Mean Corpuscular HGB Conc 32.2 GM/DL (32-36); Mean Corpuscular Hemoglobin 26 PG (27-34); Mean Corpuscular Volume 81.8 FL (87-102); Monocytes # 0.7 10*3/uL (0.11-0.8); Monocytes % 8.2 % (1.7-12.7); Neutrophils # 6.4 10*3/uL (1.4-7.4); Platelet Count 288 T/CUMM (130-400); Red Blood Count 4.13 MC/CUMM (3.8-5.5); Red Cell Distribution Width 15.7 % (9.3-17.3); White Blood Count 8.8 T/CUMM (4-12)
[2017-11-21 10:35] LABS: Alanine Aminotransferase 45 U/L (16-61); Albumin 3.3 G/DL (3.4-5.0); Alkaline Phosphatase 98 U/L (45-117); Aspartate Amino Transferase 45 U/L (0-37); Bilirubin,Total < 0.39 MG/DL (0.2-1.0); Blood Urea Nitrogen 7 MG/DL (7-18); Calcium 8.9 MG/DL (8.5-10.1); Glucose 115 MG/DL (74-106); Osmolality,Calculated 268.1 MOS/KG (273-304); Potassium 4.1 MMOL/L (3.5-5.1); Sodium 135 MMOL/L (136-145); Total Protein 7.8 G/DL (6.4-8.3)
[2017-11-21] MEDS ORDERED: [UNRECOGNIZED DRUG - OTHER] PEG SCH (21:00)
[2017-11-22] MEDS: SODIUM CHLORIDE 0.9% IV SCH ×3 (01:30→11:54)
[2017-11-22] MEDS: NAFCILLIN IV SCH ×3 (01:30→11:54)
[2017-11-22] MEDS: ALBUTEROL/IPRATROPIUM 3 ML NEB RESP TX SCH ×4 (01:50→20:11)
[2017-11-22 05:33] LABS: Basophils % 0.5 % (0.0-0.8); Eosinophils # 0.2 10*3/uL (0.0-0.87); Eosinophils % 2.6 % (0.00-10.9); Hemoglobin 10.3 GM/DL (14.0-18.0); Immature Granulocytes % 0.1 %; Immature Granulocytes Absolute 0.01 #; Lymphocytes # 1.8 10*3/uL (1.4-4.0); Mean Corpuscular HGB Conc 32.2 GM/DL (32-36); Mean Corpuscular Hemoglobin 26 PG (27-34); Mean Corpuscular Volume 81.4 FL (87-102); Mean Platelet Volume 10.3 FL (9.6-12.0); Monocytes # 0.5 10*3/uL (0.11-0.8); Monocytes % 6.8 % (1.7-12.7); Neutrophils # 5.3 10*3/uL (1.4-7.4); Platelet Count 317 T/CUMM (130-400); Red Blood Count 3.93 MC/CUMM (3.8-5.5); Red Cell Distribution Width 15.8 % (9.3-17.3); White Blood Count 7.9 T/CUMM (4-12)
[2017-11-22 06:15] LABS: Bilirubin,Total 0.5 MG/DL (0.2-1.0); Calcium 8.5 MG/DL (8.5-10.1); Osmolality,Calculated 266.1 MOS/KG (273-304); Total Protein 7.3 G/DL (6.4-8.3)
[2017-11-22] MEDS: CIPROFLOXACIN INJ 400 MG in PREMIX 1 EACH IV SCH ×2 (07:52→22:29)
[2017-11-22] MEDS: ASPIRIN EC 325 MG TABLET PO SCH (10:12)
[2017-11-22] MEDS: VALPROIC ACID 250 MG/5 ML UDCUP PEG SCH ×2 (10:13→22:37)
[2017-11-22] MEDS: LANSOPRAZOLE ODT 30 MG TABLET PEG SCH (10:13)
[2017-11-22] MEDS: GABAPENTIN 50 MG/ML 30 ML/BOTTLE PEG SCH ×3 (11:34→22:52)
[2017-11-22] MEDS: MULTIVITAMIN LIQUID (CENTRUM) 60 ML BOTTLE PEG SCH (11:34)
[2017-11-22] MEDS: PIPERACILLIN/TAZOBACTAM 3,375 MG in SODIUM CHLORIDE 0.9% 100 ML IV SCH (13:37)
[2017-11-23] MEDS: ALBUTEROL/IPRATROPIUM 3 ML NEB RESP TX SCH ×4 (01:16→19:45)
[2017-11-23] MEDS: PIPERACILLIN/TAZOBACTAM 3,375 MG in SODIUM CHLORIDE 0.9% 100 ML IV SCH ×4 (06:17→22:05)
[2017-11-23] MEDS: CIPROFLOXACIN INJ 400 MG in PREMIX 1 EACH IV SCH ×2 (09:43→20:59)
[2017-11-23] MEDS: ASPIRIN EC 325 MG TABLET PO SCH (09:45)
[2017-11-23] MEDS: LANSOPRAZOLE ODT 30 MG TABLET PEG SCH (09:45)
[2017-11-23] MEDS: MULTIVITAMIN LIQUID (CENTRUM) 60 ML BOTTLE PEG SCH (09:45)
[2017-11-23] MEDS: GABAPENTIN 50 MG/ML 30 ML/BOTTLE PEG SCH ×3 (09:45→21:03)
[2017-11-23] MEDS: VALPROIC ACID 250 MG/5 ML UDCUP PEG SCH ×2 (09:45→21:03)
[2017-11-24] MEDS: ALBUTEROL/IPRATROPIUM 3 ML NEB RESP TX SCH ×4 (01:50→19:55)
[2017-11-24] MEDS: PIPERACILLIN/TAZOBACTAM 3,375 MG in SODIUM CHLORIDE 0.9% 100 ML IV SCH ×3 (05:39→23:02)
[2017-11-24 05:50] LABS: Basophils % 0.5 % (0.0-0.8); Eosinophils # 0.2 10*3/uL (0.0-0.87); Eosinophils % 2.5 % (0.00-10.9); Hematocrit 32.4 VOL% (42.0-52.0); Hemoglobin 10.6 GM/DL (14.0-18.0); Immature Granulocytes % 0.4 %; Immature Granulocytes Absolute 0.03 #; Lymphocytes # 1.6 10*3/uL (1.4-4.0); Lymphocytes % 21.3 % (21.2-54.2); Mean Corpuscular HGB Conc 32.7 GM/DL (32-36); Mean Corpuscular Hemoglobin 26 PG (27-34); Mean Corpuscular Volume 79.6 FL (87-102); Mean Platelet Volume 9.6 FL (9.6-12.0); Monocytes # 0.5 10*3/uL (0.11-0.8); Monocytes % 6.1 % (1.7-12.7); Neutrophils # 5.3 10*3/uL (1.4-7.4); Neutrophils % 69.2 % (38.7-73.9); Platelet Count 309 T/CUMM (130-400); Red Blood Count 4.07 MC/CUMM (3.8-5.5); Red Cell Distribution Width 15.9 % (9.3-17.3); White Blood Count 7.7 T/CUMM (4-12)
[2017-11-24 06:15] LABS: Calcium 8.6 MG/DL (8.5-10.1); Potassium 4.6 MMOL/L (3.5-5.1)
[2017-11-24] MEDS: MULTIVITAMIN LIQUID (CENTRUM) 60 ML BOTTLE PEG SCH (09:50)
[2017-11-24] MEDS: CIPROFLOXACIN INJ 400 MG in PREMIX 1 EACH IV SCH ×2 (09:50→21:14)
[2017-11-24] MEDS: LANSOPRAZOLE ODT 30 MG TABLET PEG SCH (09:53)
[2017-11-24] MEDS: ASPIRIN EC 325 MG TABLET PO SCH (09:53)
[2017-11-24] MEDS: VALPROIC ACID 250 MG/5 ML UDCUP PEG SCH ×2 (09:53→21:19)
[2017-11-24] MEDS: GABAPENTIN 50 MG/ML 30 ML/BOTTLE PEG SCH ×3 (09:53→21:19)
[2017-11-24] MEDS: ENOXAPARIN 40 MG/0.4 ML SYRINGE SUBCUT SCH (12:16)
[2017-11-25] MEDS: ALBUTEROL/IPRATROPIUM 3 ML NEB RESP TX SCH ×4 (01:56→19:58)
[2017-11-25 05:40] LABS: Basophils % 0.4 % (0.0-0.8); Eosinophils # 0.3 10*3/uL (0.0-0.87); Eosinophils % 3.7 % (0.00-10.9); Hematocrit 32.8 VOL% (42.0-52.0); Hemoglobin 10.8 GM/DL (14.0-18.0); Immature Granulocytes % 0.3 %; Immature Granulocytes Absolute 0.02 #; Lymphocytes # 1.7 10*3/uL (1.4-4.0); Mean Corpuscular HGB Conc 32.9 GM/DL (32-36); Mean Corpuscular Hemoglobin 26 PG (27-34); Mean Corpuscular Volume 80.2 FL (87-102); Mean Platelet Volume 9.9 FL (9.6-12.0); Monocytes # 0.6 10*3/uL (0.11-0.8); Monocytes % 7.6 % (1.7-12.7); Neutrophils # 4.6 10*3/uL (1.4-7.4); Platelet Count 314 T/CUMM (130-400); Red Blood Count 4.09 MC/CUMM (3.8-5.5); Red Cell Distribution Width 15.9 % (9.3-17.3); White Blood Count 7.3 T/CUMM (4-12)
[2017-11-25] MEDS: PIPERACILLIN/TAZOBACTAM 3,375 MG in SODIUM CHLORIDE 0.9% 100 ML IV SCH ×2 (06:08→14:35)
[2017-11-25 06:22] LABS: Calcium 8.9 MG/DL (8.5-10.1); Potassium 4.3 MMOL/L (3.5-5.1)
[2017-11-25] MEDS: CIPROFLOXACIN INJ 400 MG in PREMIX 1 EACH IV SCH ×3 (09:39→22:20)
[2017-11-25] MEDS: GABAPENTIN 50 MG/ML 30 ML/BOTTLE PEG SCH ×3 (09:40→22:13)
[2017-11-25] MEDS: VALPROIC ACID 250 MG/5 ML UDCUP PEG SCH ×2 (09:40→22:13)
[2017-11-25] MEDS: MULTIVITAMIN LIQUID (CENTRUM) 60 ML BOTTLE PEG SCH (09:40)
[2017-11-25] MEDS: LANSOPRAZOLE ODT 30 MG TABLET PEG SCH (09:41)
[2017-11-25] MEDS: ASPIRIN EC 325 MG TABLET PO SCH (09:41)
[2017-11-25] MEDS: ENOXAPARIN 40 MG/0.4 ML SYRINGE SUBCUT SCH (12:45)
[2017-11-26] MEDS: PIPERACILLIN/TAZOBACTAM 3,375 MG in SODIUM CHLORIDE 0.9% 100 ML IV SCH ×3 (00:41→17:35)
[2017-11-26] MEDS: ALBUTEROL/IPRATROPIUM 3 ML NEB RESP TX SCH ×4 (02:05→20:30)
[2017-11-26 05:04] LABS: Basophils # 0.1 10*3/uL (0.0-0.2); Basophils % 0.9 % (0.0-0.8); Eosinophils # 0.2 10*3/uL (0.0-0.87); Eosinophils % 3.6 % (0.00-10.9); Hematocrit 34.1 VOL% (42.0-52.0); Hemoglobin 10.7 GM/DL (14.0-18.0); Immature Granulocytes % 0.1 %; Immature Granulocytes Absolute 0.01 #; Lymphocytes # 2.2 10*3/uL (1.4-4.0); Lymphocytes % 32.4 % (21.2-54.2); Mean Corpuscular HGB Conc 31.4 GM/DL (32-36); Mean Corpuscular Hemoglobin 26 PG (27-34); Mean Corpuscular Volume 82.2 FL (87-102); Mean Platelet Volume 9.8 FL (9.6-12.0); Monocytes # 0.5 10*3/uL (0.11-0.8); Monocytes % 6.7 % (1.7-12.7); Neutrophils # 3.8 10*3/uL (1.4-7.4); Neutrophils % 56.3 % (38.7-73.9); Platelet Count 307 T/CUMM (130-400); Red Blood Count 4.15 MC/CUMM (3.8-5.5); Red Cell Distribution Width 15.6 % (9.3-17.3); White Blood Count 6.8 T/CUMM (4-12)
[2017-11-26 05:30] LABS: Calcium 8.9 MG/DL (8.5-10.1); Osmolality,Calculated 271.8 MOS/KG (273-304); Potassium 4.1 MMOL/L (3.5-5.1)
[2017-11-26] MEDS: CIPROFLOXACIN INJ 400 MG in PREMIX 1 EACH IV SCH ×2 (08:28→21:01)
[2017-11-26] MEDS: MULTIVITAMIN LIQUID (CENTRUM) 60 ML BOTTLE PEG SCH (08:29)
[2017-11-26] MEDS: ASPIRIN EC 325 MG TABLET PO SCH (08:29)
[2017-11-26] MEDS: VALPROIC ACID 250 MG/5 ML UDCUP PEG SCH ×2 (08:29→20:54)
[2017-11-26] MEDS: LANSOPRAZOLE ODT 30 MG TABLET PEG SCH (08:29)
[2017-11-26] MEDS: GABAPENTIN 50 MG/ML 30 ML/BOTTLE PEG SCH ×3 (08:30→20:54)
[2017-11-26] MEDS: ENOXAPARIN 40 MG/0.4 ML SYRINGE SUBCUT SCH (11:39)
[2017-11-26] MEDS: ACETAMINOPHEN 325 MG TABLET PO PRN (14:58)
[2017-11-27] MEDS: PIPERACILLIN/TAZOBACTAM 3,375 MG in SODIUM CHLORIDE 0.9% 100 ML IV SCH ×2 (01:03→13:03)
[2017-11-27] MEDS: ALBUTEROL/IPRATROPIUM 3 ML NEB RESP TX SCH ×3 (01:21→12:00)
[2017-11-27] MEDS: CIPROFLOXACIN INJ 400 MG in PREMIX 1 EACH IV SCH (10:06)
[2017-11-27] MEDS: LANSOPRAZOLE ODT 30 MG TABLET PEG SCH (10:06)
[2017-11-27] MEDS: ASPIRIN EC 325 MG TABLET PO SCH (10:06)
[2017-11-27] MEDS: GABAPENTIN 50 MG/ML 30 ML/BOTTLE PEG SCH (10:08)
[2017-11-27] MEDS: VALPROIC ACID 250 MG/5 ML UDCUP PEG SCH (10:08)
[2017-11-27] MEDS: MULTIVITAMIN LIQUID (CENTRUM) 60 ML BOTTLE PEG SCH (10:08)
[2017-11-27 12:42] VITALS: BP 94/61
[2017-11-27] MEDS: ENOXAPARIN 40 MG/0.4 ML SYRINGE SUBCUT SCH (13:03)
== END 2017-11-27 17:01 | disposition home or self-care (01) | DRG 177 ==
LOC: EDUNIT# → EDBD → N.ED 10:48 → SUATTDRO 13:16 → N.EDINP 13:16 → N.3E 14:04
PROVIDERS: ADMIT Internal Medicine; ATTEND Internal Medicine

== ENCOUNTER 2017-12-30 05:06 | Inpatient (IN) ==
[2017-12-30] MEDS ORDERED: SODIUM CHLORIDE 0.9% 1,000 ML IV STA (05:26)
[2017-12-30 05:46] LABS: Basophils % 0.5 % (0.0-0.8); Eosinophils # 0.3 10*3/uL (0.0-0.87); Eosinophils % 3.2 % (0.00-10.9); Hematocrit 45.7 VOL% (42.0-52.0); Hemoglobin 14.6 GM/DL (14.0-18.0); Immature Granulocytes % 0.2 %; Immature Granulocytes Absolute 0.02 #; Lymphocytes # 2.2 10*3/uL (1.4-4.0); Lymphocytes % 26.9 % (21.2-54.2); Mean Corpuscular HGB Conc 31.9 GM/DL (32-36); Mean Corpuscular Hemoglobin 26 PG (27-34); Monocytes # 0.9 10*3/uL (0.11-0.8); Monocytes % 11.4 % (1.7-12.7); Neutrophils # 4.7 10*3/uL (1.4-7.4); Neutrophils % 57.8 % (38.7-73.9); Platelet Count 311 T/CUMM (130-400); Red Blood Count 5.64 MC/CUMM (3.8-5.5); Red Cell Distribution Width 17.4 % (9.3-17.3); White Blood Count 8.1 T/CUMM (4-12)
[2017-12-30 06:07] LABS: Alanine Aminotransferase 90 U/L (16-61); Albumin 3.8 G/DL (3.4-5.0); Alkaline Phosphatase 132 U/L (45-117); Aspartate Amino Transferase 62 U/L (0-37); Bilirubin,Total < 0.39 MG/DL (0.2-1.0); Blood Urea Nitrogen 8 MG/DL (7-18); Calcium 10.2 MG/DL (8.5-10.1); Glucose 110 MG/DL (74-106); Lactic Acid 3.7 MMOL/L (0.4-2.0); Osmolality,Calculated 271.8 MOS/KG (273-304); Potassium 4.6 MMOL/L (3.5-5.1); Sodium 137 MMOL/L (136-145); Total Protein 9.2 G/DL (6.4-8.3)
[2017-12-30] MEDS ORDERED: SODIUM CHLORIDE 0.9% 2,450 ML IV ONE ×2 (06:18→08:16)
[2017-12-30] MEDS ORDERED: VANCOMYCIN INJ 1,000 MG in SODIUM CHLORIDE 0.9% 250 ML IV STA (06:24)
[2017-12-30] MEDS ORDERED: PIPERACILLIN/TAZOBACTAM 2,250 MG in SODIUM CHLORIDE 0.9% 100 ML IV STA (06:25)
[2017-12-30 06:26] LABS: Apearance,Urine CLOUDY (Clear); Bilirubin,Urine Negative (Negative); Blood, Urine Large mg/dL (Negative); Glucose,Urine (UA) 50 mg/dL (Negative); Ketones,Urine 5 mg/dL (Negative); Mucus,Urine Occasional /LPF (Occasional); Nitrite,Urine Negative (Negative); Protein,Urine >=500 MG/DL; RBC,Urine 2631 /HPF (0-4); Urine Color Amber (Yellow); Urine Urobilinogen < 2.0 EU/DL (0.2-1.0); WBC,Urine 288 /HPF (0-6)
[2017-12-30] MEDS ORDERED: VANCOMYCIN 1,000 MG VIAL ONE (06:28)
[2017-12-30] MEDS ORDERED: ACETAMINOPHEN 325 MG TABLET PO PRN (07:54)
[2017-12-30] MEDS ORDERED: ONDANSETRON 4 MG/2 ML VIAL IV PRN (07:54)
[2017-12-30] MEDS ORDERED: LEVOFLOXACIN INJ 750 MG in PREMIX 1 EACH IV SCH (08:00)
[2017-12-30] MEDS ORDERED: PIPERACILLIN/TAZOBACTAM 3,375 MG VIAL IV ONE (08:43)
[2017-12-30] MEDS ORDERED: PANTOPRAZOLE 40 MG TABLET PO SCH (09:00)
[2017-12-30] MEDS: PIPERACILLIN/TAZOBACTAM 3,375 MG in SODIUM CHLORIDE 0.9% 100 ML IV SCH ×2 (09:10→17:45)
[2017-12-30] MEDS: SODIUM CHLORIDE 0.9% 1,000 ML IV SCH (14:24)
[2017-12-30] MEDS ORDERED: [UNRECOGNIZED DRUG - OTHER] PEG SCH (21:00)
[2017-12-30] MEDS: GABAPENTIN 50 MG/ML 30 ML/BOTTLE PEG SCH (21:49)
[2017-12-30] MEDS: VALPROIC ACID 250 MG/5 ML UDCUP PEG SCH (21:50)
[2017-12-30] MEDS: MAGNESIUM OXIDE 400 MG TABLET PEG SCH (21:50)
[2017-12-31] MEDS: PIPERACILLIN/TAZOBACTAM 3,375 MG in SODIUM CHLORIDE 0.9% 100 ML IV SCH ×4 (00:56→23:44)
[2017-12-31 05:08] LABS: Basophils % 0.5 % (0.0-0.8); Eosinophils # 0.3 10*3/uL (0.0-0.87); Eosinophils % 5.3 % (0.00-10.9); Hematocrit 37.3 VOL% (42.0-52.0); Hemoglobin 12.1 GM/DL (14.0-18.0); Immature Granulocytes % 0.4 %; Immature Granulocytes Absolute 0.02 #; Lymphocytes # 2.1 10*3/uL (1.4-4.0); Lymphocytes % 37.3 % (21.2-54.2); Mean Corpuscular HGB Conc 32.4 GM/DL (32-36); Mean Corpuscular Hemoglobin 26 PG (27-34); Mean Corpuscular Volume 79.5 FL (87-102); Mean Platelet Volume 11.9 FL (9.6-12.0); Monocytes # 0.5 10*3/uL (0.11-0.8); Monocytes % 9.5 % (1.7-12.7); Neutrophils # 2.7 10*3/uL (1.4-7.4); Platelet Count 261 T/CUMM (130-400); Red Blood Count 4.69 MC/CUMM (3.8-5.5); White Blood Count 5.7 T/CUMM (4-12)
[2017-12-31 05:41] LABS: Prealbumin 17.4 MG/DL (20-40)
[2017-12-31 05:41] LABS: Calcium 8.7 MG/DL (8.5-10.1); Osmolality,Calculated 272.7 MOS/KG (273-304); Potassium 4.4 MMOL/L (3.5-5.1)
[2017-12-31] MEDS: SODIUM CHLORIDE 0.9% 1,000 ML IV SCH ×2 (05:47→23:44)
[2017-12-31] MEDS: ASPIRIN EC 325 MG TABLET PO SCH (08:17)
[2017-12-31] MEDS: MAGNESIUM OXIDE 400 MG TABLET PEG SCH ×3 (08:17→21:00)
[2017-12-31] MEDS: LANSOPRAZOLE ODT 30 MG TABLET PEG SCH (08:18)
[2017-12-31] MEDS: POTASSIUM CHLORIDE 20 MEQ/15 ML UDCUP PEG SCH (08:18)
[2017-12-31] MEDS: MULTIVITAMIN LIQUID (CENTRUM) 60 ML BOTTLE PEG SCH (08:18)
[2017-12-31] MEDS: GABAPENTIN 50 MG/ML 30 ML/BOTTLE PEG SCH ×3 (08:18→23:43)
[2017-12-31] MEDS: VALPROIC ACID 250 MG/5 ML UDCUP PEG SCH ×2 (08:18→20:59)
[2018-01-01] MEDS: PIPERACILLIN/TAZOBACTAM 3,375 MG in SODIUM CHLORIDE 0.9% 100 ML IV SCH ×2 (08:18→15:32)
[2018-01-01] MEDS: LANSOPRAZOLE ODT 30 MG TABLET PEG SCH (08:19)
[2018-01-01] MEDS: MAGNESIUM OXIDE 400 MG TABLET PEG SCH ×3 (08:19→20:56)
[2018-01-01] MEDS: ASPIRIN EC 325 MG TABLET PO SCH (08:19)
[2018-01-01] MEDS: POTASSIUM CHLORIDE 20 MEQ/15 ML UDCUP PEG SCH (08:19)
[2018-01-01] MEDS: VALPROIC ACID 250 MG/5 ML UDCUP PEG SCH ×2 (08:19→20:56)
[2018-01-01] MEDS: GABAPENTIN 50 MG/ML 30 ML/BOTTLE PEG SCH ×3 (08:27→20:56)
[2018-01-01] MEDS: MULTIVITAMIN LIQUID (CENTRUM) 60 ML BOTTLE PEG SCH (08:28)
[2018-01-01] MEDS: SODIUM CHLORIDE 0.9% 1,000 ML IV SCH (20:57)
[2018-01-02] MEDS: PIPERACILLIN/TAZOBACTAM 3,375 MG in SODIUM CHLORIDE 0.9% 100 ML IV SCH ×2 (02:01→08:34)
[2018-01-02 07:50] VITALS: BP 121/70
[2018-01-02] MEDS: LANSOPRAZOLE ODT 30 MG TABLET PEG SCH (08:27)
[2018-01-02] MEDS: ASPIRIN EC 325 MG TABLET PO SCH (08:27)
[2018-01-02] MEDS: POTASSIUM CHLORIDE 20 MEQ/15 ML UDCUP PEG SCH (08:27)
[2018-01-02] MEDS: MAGNESIUM OXIDE 400 MG TABLET PEG SCH (08:27)
[2018-01-02] MEDS: VALPROIC ACID 250 MG/5 ML UDCUP PEG SCH (08:27)
[2018-01-02] MEDS: MULTIVITAMIN LIQUID (CENTRUM) 60 ML BOTTLE PEG SCH (08:28)
[2018-01-02] MEDS: GABAPENTIN 50 MG/ML 30 ML/BOTTLE PEG SCH (08:28)
== END 2018-01-02 10:53 | disposition home or self-care (01) | DRG 698 ==
LOC: N.ED 05:06 → N.EDINP 07:53 → N.5E 10:01
PROVIDERS: ADMIT Internal Medicine Geriatric Medicine; ATTEND Internal Medicine Geriatric Medicine

== ENCOUNTER 2018-06-20 09:31 | Inpatient (IN) ==
[2018-06-20] MEDS ORDERED: ALBUTEROL 2.5 MG/3 ML NEB RESP TX SCH (10:00)
[2018-06-20 10:11] LABS: Allen Test Positive
[2018-06-20 10:13] LABS: ABG Base Excess 11.3 MMOL/L (-2.5-2.5); ABG Oxygen Saturation 92.8 % (95-100); ABG PH 7.341 (7.35-7.45); ABG TCO2 42.3 MMOL/L (23-27)
[2018-06-20 10:16] LABS: ABG PCO2 75.6 MM HG (35-48)
[2018-06-20] MEDS ORDERED: CLINDAMYCIN INJ 900 MG in PREMIX 1 EACH IV STA (10:38)
[2018-06-20 11:33] LABS: Basophils % 0.2 % (0.0-0.8); Eosinophils # 0.1 10*3/uL (0.0-0.87); Eosinophils % 1.1 % (0.00-10.9); Hematocrit 38.6 VOL% (42.0-52.0); Hemoglobin 11.7 GM/DL (14.0-18.0); Immature Granulocytes % 0.5 %; Immature Granulocytes Absolute 0.03 #; Lymphocytes # 2.4 10*3/uL (1.4-4.0); Lymphocytes % 36.2 % (21.2-54.2); Mean Corpuscular HGB Conc 30.3 GM/DL (32-36); Mean Corpuscular Hemoglobin 26 PG (27-34); Mean Corpuscular Volume 85.4 FL (87-102); Mean Platelet Volume 10.4 FL (9.6-12.0); Monocytes # 0.5 10*3/uL (0.11-0.8); Monocytes % 8.2 % (1.7-12.7); Neutrophils # 3.6 10*3/uL (1.4-7.4); Neutrophils % 53.8 % (38.7-73.9); Platelet Count 205 T/CUMM (130-400); Red Blood Count 4.52 MC/CUMM (3.8-5.5); Red Cell Distribution Width 15.7 % (9.3-17.3); White Blood Count 6.6 T/CUMM (4-12)
[2018-06-20 11:39] LABS: Apearance,Urine CLOUDY (Clear); Bacteria,Urine Many /HPF (Few); Bilirubin,Urine Negative (Negative); Blood, Urine Negative (Negative); Glucose,Urine (UA) Negative (Negative); Ketones,Urine Negative (Negative); Mucus,Urine Many /LPF (Occasional); Nitrite,Urine Negative (Negative); Protein,Urine 100 MG/DL; RBC,Urine 55 /HPF (0-4); Urine Color Yellow (Yellow); Urine Specific Gravity 1.025 (1.001-1.035); Urine Urobilinogen < 2.0 EU/DL (0.2-1.0); WBC,Urine 406 /HPF (0-6)
[2018-06-20 11:42] LABS: PT Patient Result 10.7 SECS
[2018-06-20 11:53] LABS: Alanine Aminotransferase 43 U/L (16-61); Albumin 2.9 G/DL (3.4-5.0); Alkaline Phosphatase 76 U/L (45-117); Aspartate Amino Transferase 27 U/L (0-37); Bilirubin,Total < 0.39 MG/DL (0.2-1.0); Blood Urea Nitrogen 12 MG/DL (7-18); Calcium 8.4 MG/DL (8.5-10.1); Glucose 84 MG/DL (74-106); Osmolality,Calculated 260.7 MOS/KG (273-304); Potassium 4.2 MMOL/L (3.5-5.1); Sodium 131 MMOL/L (136-145); Total Protein 7.9 G/DL (6.4-8.3); Troponin I < 0.015 NG/ML (0.00-0.045)
[2018-06-20 12:43] LABS: Barbiturates Screen,Urine Negative (Negative); Benzodiazepines Screen,Urine Negative (Negative); Cannabinoid Screen,Urine Negative (Negative); Opiate Screen,Urine Negative (Negative); Phencyclidine Screen,Urine Negative (Negative)
[2018-06-20] MEDS ORDERED: ONDANSETRON 4 MG/2 ML VIAL IV PRN (13:06)
[2018-06-20] MEDS ORDERED: VANCOMYCIN INJ 1,000 MG in SODIUM CHLORIDE 0.9% 250 ML IV SCH (13:30)
[2018-06-20] MEDS ORDERED: INFLUENZA VIRUS VACCINE 0.5 ML SYRINGE IM ONE (14:35)
[2018-06-20] MEDS ORDERED: PROPOFOL 1,000 MG/100 ML BOTTLE IV ONE (14:51)
[2018-06-20] MEDS ORDERED: SUCCINYLCHOLINE 200 MG/10 ML VIAL ONE (14:52)
[2018-06-20] MEDS ORDERED: ETOMIDATE 20 MG/10 ML VIAL IV ONE ×3 (14:52→15:53)
[2018-06-20] MEDS ORDERED: MIDAZOLAM 10 MG/2 ML VIAL ONE (14:52)
[2018-06-20] MEDS ORDERED: VECURONIUM 10 MG VIAL IV ONE ×2 (14:56→15:53)
[2018-06-20] MEDS: LINEZOLID INJ 600 MG in PREMIX 1 EACH IV SCH (16:12)
[2018-06-20 16:23] LABS: ABG Base Excess 8.9 MMOL/L (-2.5-2.5); ABG HCO3 32.7 MMOL/L (20-26); ABG PCO2 41.1 MM HG (35-48); ABG TCO2 28.8 MMOL/L (23-27)
[2018-06-20] MEDS: MEROPENEM 1,000 MG in SODIUM CHLORIDE 0.9% 100 ML IV SCH (17:20)
[2018-06-20] MEDS: cefTAZidime 1,000 MG in SYRINGE 1 EACH IV SCH (17:57)
[2018-06-20] MEDS ORDERED: PROPOFOL 1,000 MG/100 ML BOTTLE IV SCH (18:00)
[2018-06-20] MEDS: VALPROIC ACID INJ 500 MG in SODIUM CHLORIDE 0.9% 100 ML IV SCH (19:17)
[2018-06-20] MEDS: ENOXAPARIN 40 MG/0.4 ML SYRINGE SUBCUT SCH (20:20)
[2018-06-20] MEDS: PANTOPRAZOLE 40 MG VIAL IV SCH (20:20)
[2018-06-20] MEDS ORDERED: SODIUM CHLORIDE 0.9% 500 ML IV ONE (21:14)
[2018-06-21] MEDS: MEROPENEM 1,000 MG in SODIUM CHLORIDE 0.9% 100 ML IV SCH ×2 (00:30→08:00)
[2018-06-21] MEDS: cefTAZidime 1,000 MG in SYRINGE 1 EACH IV SCH ×3 (01:02→22:26)
[2018-06-21] MEDS: LINEZOLID INJ 600 MG in PREMIX 1 EACH IV SCH ×2 (03:18→15:03)
[2018-06-21] MEDS: VALPROIC ACID INJ 500 MG in SODIUM CHLORIDE 0.9% 100 ML IV SCH ×3 (03:18→18:00)
[2018-06-21 04:24] LABS: ABG Base Excess 7.1 MMOL/L (-2.5-2.5); ABG PCO2 35.9 MM HG (35-48); ABG PH 7.531 (7.35-7.45); ABG TCO2 26.5 MMOL/L (23-27)
[2018-06-21 05:10] LABS: Basophils % 0.2 % (0.0-0.8); Hematocrit 34.5 VOL% (42.0-52.0); Hemoglobin 11.2 GM/DL (14.0-18.0); Immature Granulocytes % 0.2 %; Immature Granulocytes Absolute 0.02 #; Lymphocytes # 1.1 10*3/uL (1.4-4.0); Lymphocytes % 11.9 % (21.2-54.2); Mean Corpuscular HGB Conc 32.5 GM/DL (32-36); Mean Corpuscular Hemoglobin 26 PG (27-34); Mean Corpuscular Volume 81.4 FL (87-102); Mean Platelet Volume 11.3 FL (9.6-12.0); Monocytes # 0.8 10*3/uL (0.11-0.8); Monocytes % 9.2 % (1.7-12.7); Neutrophils % 78.5 % (38.7-73.9); Platelet Count 225 T/CUMM (130-400); Red Blood Count 4.24 MC/CUMM (3.8-5.5); Red Cell Distribution Width 15.4 % (9.3-17.3); White Blood Count 8.9 T/CUMM (4-12)
[2018-06-21 05:12] LABS: Albumin 2.7 G/DL (3.4-5.0); Bilirubin,Total 0.4 MG/DL (0.2-1.0); Calcium 8.4 MG/DL (8.5-10.1); Osmolality,Calculated 260.8 MOS/KG (273-304); Potassium 3.6 MMOL/L (3.5-5.1); Thyroid Stimulating Hormone 0.761 uIU/ml (0.358-3.74); Total Protein 7.2 G/DL (6.4-8.3)
[2018-06-21] MEDS ORDERED: MIDAZOLAM 2 MG/2 ML VIAL IV ONE (06:36)
[2018-06-21] MEDS ORDERED: LIDOCAINE 2% 20 ML VIAL RESP TX ONE (06:36)
[2018-06-21] MEDS ORDERED: LIDOCAINE 1% 20 ML VIAL MISC INJ ONE (06:36)
[2018-06-21] MEDS ORDERED: MIDAZOLAM 10 MG/2 ML VIAL ONE (06:50)
[2018-06-21] MEDS: PANTOPRAZOLE 40 MG VIAL IV SCH ×2 (08:00→20:16)
[2018-06-21] MEDS ORDERED: SODIUM CHLORIDE 0.9% 1,500 ML IV ONE (13:00)
[2018-06-21] MEDS: SODIUM CHLORIDE/POTASSIUM CHLORIDE TABLET PEG SCH ×2 (15:12→20:16)
[2018-06-21] MEDS ORDERED: ACETAMINOPHEN 325 MG TABLET PO PRN (20:04)
[2018-06-21] MEDS: ENOXAPARIN 40 MG/0.4 ML SYRINGE SUBCUT SCH (20:16)
[2018-06-22] MEDS: LINEZOLID INJ 600 MG in PREMIX 1 EACH IV SCH (03:16)
[2018-06-22] MEDS: VALPROIC ACID INJ 500 MG in SODIUM CHLORIDE 0.9% 100 ML IV SCH ×3 (03:16→18:08)
[2018-06-22 04:15] LABS: ABG Base Excess 1.3 MMOL/L (-2.5-2.5); ABG HCO3 25.5 MMOL/L (20-26); ABG Oxygen Saturation 92.5 % (95-100); ABG PH 7.441 (7.35-7.45); ABG PO2 59.1 MM HG (80-95); ABG TCO2 22.5 MMOL/L (23-27)
[2018-06-22 04:27] LABS: Basophils % 0.3 % (0.0-0.8); Eosinophils % 0.1 % (0.00-10.9); Hematocrit 33.2 VOL% (42.0-52.0); Hemoglobin 10.7 GM/DL (14.0-18.0); Immature Granulocytes % 0.1 %; Immature Granulocytes Absolute 0.01 #; Lymphocytes # 1.4 10*3/uL (1.4-4.0); Lymphocytes % 20.4 % (21.2-54.2); Mean Corpuscular HGB Conc 32.2 GM/DL (32-36); Mean Corpuscular Hemoglobin 26 PG (27-34); Mean Platelet Volume 10.7 FL (9.6-12.0); Monocytes # 0.5 10*3/uL (0.11-0.8); Monocytes % 6.8 % (1.7-12.7); Neutrophils # 4.9 10*3/uL (1.4-7.4); Neutrophils % 72.3 % (38.7-73.9); Platelet Count 221 T/CUMM (130-400); Red Cell Distribution Width 15.9 % (9.3-17.3); White Blood Count 6.8 T/CUMM (4-12)
[2018-06-22 04:39] LABS: Calcium 8.3 MG/DL (8.5-10.1); Osmolality,Calculated 272.7 MOS/KG (273-304); Potassium 2.8 MMOL/L (3.5-5.1)
[2018-06-22] MEDS: cefTAZidime 1,000 MG in SYRINGE 1 EACH IV SCH ×3 (05:30→21:13)
[2018-06-22] MEDS: POTASSIUM CHLORIDE 20 MEQ/15 ML UDCUP PER TUBE PRN ×5 (05:30→21:14)
[2018-06-22] MEDS: CIPROFLOXACIN INJ 400 MG in PREMIX 1 EACH IV SCH ×2 (07:56→21:15)
[2018-06-22] MEDS: SODIUM CHLORIDE/POTASSIUM CHLORIDE TABLET PEG SCH ×2 (08:00→08:19)
[2018-06-22] MEDS: PANTOPRAZOLE 40 MG VIAL IV SCH ×2 (08:05→21:13)
[2018-06-22] MEDS ORDERED: MAGNESIUM SULF RIDER 50 ML IV ONE (08:15)
[2018-06-22] MEDS ORDERED: MAGNESIUM SULF RIDER 2 GM in PREMIX 1 EACH IV ONE (08:30)
[2018-06-22] MEDS: ENOXAPARIN 40 MG/0.4 ML SYRINGE SUBCUT SCH (21:14)
[2018-06-22] MEDS: PROPOFOL 1,000 MG/100 ML BOTTLE IV SCH (22:21)
[2018-06-23] MEDS: POTASSIUM CHLORIDE 20 MEQ/15 ML UDCUP PER TUBE PRN ×2 (00:13→06:04)
[2018-06-23] MEDS: VALPROIC ACID INJ 500 MG in SODIUM CHLORIDE 0.9% 100 ML IV SCH ×3 (03:04→18:06)
[2018-06-23 04:00] LABS: ABG Base Excess -2.6 MMOL/L (-2.5-2.5); ABG HCO3 22.3 MMOL/L (20-26); ABG Oxygen Saturation 99.3 % (95-100); ABG PCO2 36.2 MM HG (35-48); ABG PH 7.389 (7.35-7.45); ABG TCO2 19.4 MMOL/L (23-27)
[2018-06-23 05:15] LABS: Basophils % 0.3 % (0.0-0.8); Eosinophils # 0.1 10*3/uL (0.0-0.87); Eosinophils % 0.6 % (0.00-10.9); Hematocrit 34.8 VOL% (42.0-52.0); Hemoglobin 11.2 GM/DL (14.0-18.0); Immature Granulocytes % 0.3 %; Immature Granulocytes Absolute 0.02 #; Lymphocytes # 1.5 10*3/uL (1.4-4.0); Lymphocytes % 19.1 % (21.2-54.2); Mean Corpuscular HGB Conc 32.2 GM/DL (32-36); Mean Corpuscular Hemoglobin 26 PG (27-34); Mean Corpuscular Volume 81.7 FL (87-102); Mean Platelet Volume 10.6 FL (9.6-12.0); Monocytes # 0.5 10*3/uL (0.11-0.8); Monocytes % 6.9 % (1.7-12.7); Neutrophils # 5.6 10*3/uL (1.4-7.4); Neutrophils % 72.8 % (38.7-73.9); Platelet Count 232 T/CUMM (130-400); Red Blood Count 4.26 MC/CUMM (3.8-5.5); Red Cell Distribution Width 16.1 % (9.3-17.3); White Blood Count 7.7 T/CUMM (4-12)
[2018-06-23] MEDS: cefTAZidime 1,000 MG in SYRINGE 1 EACH IV SCH ×2 (05:15→15:55)
[2018-06-23 05:55] LABS: Calcium 8.5 MG/DL (8.5-10.1); Osmolality,Calculated 278.1 MOS/KG (273-304); Potassium 3.7 MMOL/L (3.5-5.1)
[2018-06-23] MEDS ORDERED: MIDAZOLAM 2 MG/2 ML VIAL IV ONE (06:30)
[2018-06-23] MEDS ORDERED: LIDOCAINE 2% 20 ML VIAL RESP TX ONE (06:30)
[2018-06-23] MEDS ORDERED: LIDOCAINE 1% 20 ML VIAL MISC INJ ONE (06:30)
[2018-06-23] MEDS ORDERED: DEXTROSE 50% 25 GM/50 ML VIAL IV PRN (07:17)
[2018-06-23] MEDS: CIPROFLOXACIN INJ 400 MG in PREMIX 1 EACH IV SCH ×2 (07:53→20:24)
[2018-06-23] MEDS: SODIUM CHLORIDE/POTASSIUM CHLORIDE TABLET PEG SCH (08:16)
[2018-06-23] MEDS: PANTOPRAZOLE 40 MG VIAL IV SCH (08:16)
[2018-06-23] MEDS: GABAPENTIN 50 MG/ML 30 ML/BOTTLE PO SCH ×3 (08:27→20:25)
[2018-06-23] MEDS ORDERED: SODIUM CHLORIDE 0.9% 500 ML IV ONE (10:50)
[2018-06-23] MEDS ORDERED: LIDOCAINE 1% 20 ML VIAL ONE (11:54)
[2018-06-23] MEDS ORDERED: BUPIVACAINE MPF 0.25% 30 ML VIAL ONE (11:54)
[2018-06-23] MEDS ORDERED: HEPARIN 5,000 UNIT/1 ML VIAL ONE (11:54)
[2018-06-23] MEDS ORDERED: CLINDAMYCIN INJ 900 MG in PREMIX 1 EACH IV ONE (12:00)
[2018-06-23] MEDS ORDERED: CLINDAMYCIN 600 MG/4 ML VIAL ONE (13:13)
[2018-06-23] MEDS ORDERED: TISSUE ADHESIVE 1 EACH APPLICATOR TOP ONE (13:31)
[2018-06-23] MEDS ORDERED: MIDAZOLAM 2 MG/2 ML VIAL ONE (14:01)
[2018-06-23] MEDS ORDERED: SEVOFLURANE 1 UNIT/15 MINUTE INH ONE (14:01)
[2018-06-23] MEDS ORDERED: fentaNYL 100 MCG/2 ML VIAL ONE (14:01)
[2018-06-23] MEDS: PROPOFOL 1,000 MG/100 ML BOTTLE IV SCH ×2 (20:08→21:53)
[2018-06-23] MEDS: ENOXAPARIN 40 MG/0.4 ML SYRINGE SUBCUT SCH (20:25)
[2018-06-24] MEDS: cefTAZidime 1,000 MG in SYRINGE 1 EACH IV SCH ×4 (01:05→23:33)
[2018-06-24 03:27] LABS: ABG Base Excess -1.4 MMOL/L (-2.5-2.5); ABG HCO3 23.2 MMOL/L (20-26); ABG PCO2 37.2 MM HG (35-48); ABG PH 7.399 (7.35-7.45); ABG TCO2 20.5 MMOL/L (23-27); Allen Test Positive; Pt O2 Delivery Device Ventilator
[2018-06-24] MEDS: VALPROIC ACID INJ 500 MG in SODIUM CHLORIDE 0.9% 100 ML IV SCH ×3 (04:10→18:16)
[2018-06-24 05:25] LABS: Basophils % 0.3 % (0.0-0.8); Eosinophils # 0.1 10*3/uL (0.0-0.87); Eosinophils % 1.1 % (0.00-10.9); Hematocrit 34.6 VOL% (42.0-52.0); Hemoglobin 10.9 GM/DL (14.0-18.0); Immature Granulocytes % 0.1 %; Immature Granulocytes Absolute 0.01 #; Lymphocytes # 1.4 10*3/uL (1.4-4.0); Lymphocytes % 18.4 % (21.2-54.2); Mean Corpuscular HGB Conc 31.5 GM/DL (32-36); Mean Corpuscular Hemoglobin 26 PG (27-34); Mean Corpuscular Volume 81.6 FL (87-102); Mean Platelet Volume 11.4 FL (9.6-12.0); Monocytes # 0.5 10*3/uL (0.11-0.8); Monocytes % 6.5 % (1.7-12.7); Neutrophils # 5.5 10*3/uL (1.4-7.4); Neutrophils % 73.6 % (38.7-73.9); Platelet Count 260 T/CUMM (130-400); Red Blood Count 4.24 MC/CUMM (3.8-5.5); Red Cell Distribution Width 15.9 % (9.3-17.3); White Blood Count 7.4 T/CUMM (4-12)
[2018-06-24 05:51] LABS: Calcium 8.6 MG/DL (8.5-10.1); Osmolality,Calculated 276.3 MOS/KG (273-304); Potassium 3.6 MMOL/L (3.5-5.1)
[2018-06-24 05:57] LABS: Calcium 8.6 MG/DL (8.5-10.1); Osmolality,Calculated 278.1 MOS/KG (273-304); Potassium 3.6 MMOL/L (3.5-5.1); Prealbumin 13.8 MG/DL (20-40)
[2018-06-24] MEDS ORDERED: LIDOCAINE 1% 20 ML VIAL MISC INJ ONE (06:03)
[2018-06-24] MEDS ORDERED: MIDAZOLAM 2 MG/2 ML VIAL IV ONE (06:03)
[2018-06-24] MEDS ORDERED: LIDOCAINE 2% 20 ML VIAL RESP TX ONE (06:30)
[2018-06-24] MEDS: DEXMEDETOMIDINE 200 MCG in SODIUM CHLORIDE 0.9% 48 ML IV PRN ×2 (06:56→18:42)
[2018-06-24] MEDS: LANSOPRAZOLE ODT 30 MG TABLET PEG SCH (08:22)
[2018-06-24] MEDS: GABAPENTIN 50 MG/ML 30 ML/BOTTLE PO SCH ×3 (08:23→20:01)
[2018-06-24] MEDS: POTASSIUM CHLORIDE 20 MEQ/15 ML UDCUP PER TUBE PRN ×2 (08:33→14:50)
[2018-06-24] MEDS: CIPROFLOXACIN INJ 400 MG in PREMIX 1 EACH IV SCH ×2 (08:36→20:00)
[2018-06-24] MEDS: SODIUM CHLORIDE/POTASSIUM CHLORIDE TABLET PEG SCH (08:39)
[2018-06-24] MEDS: ENOXAPARIN 40 MG/0.4 ML SYRINGE SUBCUT SCH (20:00)
[2018-06-25] MEDS: VALPROIC ACID INJ 500 MG in SODIUM CHLORIDE 0.9% 100 ML IV SCH ×2 (03:47→11:31)
[2018-06-25 04:14] LABS: ABG Base Excess 1.8 MMOL/L (-2.5-2.5); ABG HCO3 26.1 MMOL/L (20-26); ABG PCO2 34.1 MM HG (35-48); ABG PH 7.473 (7.35-7.45); ABG TCO2 21.9 MMOL/L (23-27); Pt O2 Delivery Device Ventilator
[2018-06-25 04:38] LABS: Basophils % 0.3 % (0.0-0.8); Eosinophils # 0.1 10*3/uL (0.0-0.87); Eosinophils % 1.4 % (0.00-10.9); Hemoglobin 11.3 GM/DL (14.0-18.0); Immature Granulocytes % 0.2 %; Immature Granulocytes Absolute 0.01 #; Lymphocytes # 1.8 10*3/uL (1.4-4.0); Lymphocytes % 26.9 % (21.2-54.2); Mean Corpuscular HGB Conc 31.4 GM/DL (32-36); Mean Corpuscular Hemoglobin 25 PG (27-34); Mean Corpuscular Volume 80.7 FL (87-102); Mean Platelet Volume 11.1 FL (9.6-12.0); Monocytes # 0.5 10*3/uL (0.11-0.8); Monocytes % 7.1 % (1.7-12.7); Neutrophils # 4.3 10*3/uL (1.4-7.4); Neutrophils % 64.1 % (38.7-73.9); Platelet Count 270 T/CUMM (130-400); Red Blood Count 4.46 MC/CUMM (3.8-5.5); Red Cell Distribution Width 15.9 % (9.3-17.3); White Blood Count 6.7 T/CUMM (4-12)
[2018-06-25 04:52] LABS: Calcium 8.9 MG/DL (8.5-10.1); Osmolality,Calculated 276.3 MOS/KG (273-304); Potassium 3.6 MMOL/L (3.5-5.1)
[2018-06-25] MEDS: POTASSIUM CHLORIDE 20 MEQ/15 ML UDCUP PER TUBE PRN ×2 (05:01→08:24)
[2018-06-25] MEDS: DEXMEDETOMIDINE 200 MCG in SODIUM CHLORIDE 0.9% 48 ML IV PRN ×2 (05:32→20:55)
[2018-06-25] MEDS ORDERED: MAGNESIUM SULF RIDER 4 GM in PREMIX 1 EACH IV PRN (07:14)
[2018-06-25] MEDS: SODIUM CHLORIDE/POTASSIUM CHLORIDE TABLET PEG SCH (08:24)
[2018-06-25] MEDS: LANSOPRAZOLE ODT 30 MG TABLET PEG SCH (08:24)
[2018-06-25] MEDS: cefTAZidime 1,000 MG in SYRINGE 1 EACH IV SCH ×3 (08:24→23:41)
[2018-06-25] MEDS: CIPROFLOXACIN INJ 400 MG in PREMIX 1 EACH IV SCH ×2 (08:25→20:48)
[2018-06-25] MEDS: GABAPENTIN 50 MG/ML 30 ML/BOTTLE PO SCH ×3 (08:26→21:16)
[2018-06-25] MEDS: VALPROIC ACID 250 MG/5 ML UDCUP PEG SCH ×2 (17:15→23:50)
[2018-06-25] MEDS: MAGNESIUM SULF RIDER 2 GM in PREMIX 1 EACH IV PRN (18:50)
[2018-06-25] MEDS: ENOXAPARIN 40 MG/0.4 ML SYRINGE SUBCUT SCH (21:18)
[2018-06-26 04:10] LABS: Basophils % 0.3 % (0.0-0.8); Eosinophils # 0.1 10*3/uL (0.0-0.87); Eosinophils % 1.4 % (0.00-10.9); Hematocrit 36.1 VOL% (42.0-52.0); Hemoglobin 11.8 GM/DL (14.0-18.0); Immature Granulocytes % 0.4 %; Immature Granulocytes Absolute 0.03 #; Lymphocytes # 1.5 10*3/uL (1.4-4.0); Mean Corpuscular HGB Conc 32.7 GM/DL (32-36); Mean Corpuscular Hemoglobin 26 PG (27-34); Mean Platelet Volume 11.2 FL (9.6-12.0); Monocytes # 0.5 10*3/uL (0.11-0.8); Monocytes % 6.7 % (1.7-12.7); Neutrophils # 5.6 10*3/uL (1.4-7.4); Neutrophils % 72.2 % (38.7-73.9); Platelet Count 287 T/CUMM (130-400); Red Blood Count 4.51 MC/CUMM (3.8-5.5); Red Cell Distribution Width 15.9 % (9.3-17.3); White Blood Count 7.7 T/CUMM (4-12)
[2018-06-26 04:38] LABS: Calcium 8.8 MG/DL (8.5-10.1); Potassium 3.9 MMOL/L (3.5-5.1)
[2018-06-26 04:56] LABS: ABG Base Excess 4.2 MMOL/L (-2.5-2.5); ABG HCO3 27.3 MMOL/L (20-26); ABG Oxygen Saturation 95.5 % (95-100); ABG PH 7.498 (7.35-7.45); ABG TCO2 28.4 MMOL/L (23-27); Allen Test Positive; Pt O2 Delivery Device Ventilator
[2018-06-26] MEDS: MAGNESIUM SULF RIDER 2 GM in PREMIX 1 EACH IV PRN (07:11)
[2018-06-26] MEDS ORDERED: MIDAZOLAM 10 MG/2 ML VIAL ONE (07:47)
[2018-06-26] MEDS: GABAPENTIN 50 MG/ML 30 ML/BOTTLE PO SCH ×3 (08:21→21:21)
[2018-06-26] MEDS: cefTAZidime 1,000 MG in SYRINGE 1 EACH IV SCH ×3 (08:21→23:19)
[2018-06-26] MEDS: LANSOPRAZOLE ODT 30 MG TABLET PEG SCH (08:22)
[2018-06-26] MEDS: VALPROIC ACID 250 MG/5 ML UDCUP PEG SCH ×2 (08:22→15:56)
[2018-06-26] MEDS: SODIUM CHLORIDE/POTASSIUM CHLORIDE TABLET PEG SCH (08:22)
[2018-06-26] MEDS: CIPROFLOXACIN INJ 400 MG in PREMIX 1 EACH IV SCH ×2 (08:25→21:20)
[2018-06-26] MEDS: DEXMEDETOMIDINE 200 MCG in SODIUM CHLORIDE 0.9% 48 ML IV PRN (15:02)
[2018-06-26] MEDS: ENOXAPARIN 40 MG/0.4 ML SYRINGE SUBCUT SCH (21:20)
[2018-06-26] MEDS ORDERED: SODIUM CHLORIDE 0.9% 1,000 ML IV SCH (23:30)
[2018-06-26] MEDS ORDERED: SODIUM CHLORIDE 0.9% 500 ML IV SCH (23:30)
[2018-06-27] MEDS: VALPROIC ACID 250 MG/5 ML UDCUP PEG SCH ×3 (01:15→16:26)
[2018-06-27 04:19] LABS: Basophils % 0.2 % (0.0-0.8); Eosinophils % 0.1 % (0.00-10.9); Hemoglobin 10.5 GM/DL (14.0-18.0); Immature Granulocytes % 0.4 %; Immature Granulocytes Absolute 0.04 #; Lymphocytes # 1.9 10*3/uL (1.4-4.0); Lymphocytes % 18.2 % (21.2-54.2); Mean Corpuscular HGB Conc 31.8 GM/DL (32-36); Mean Corpuscular Hemoglobin 26 PG (27-34); Mean Corpuscular Volume 80.7 FL (87-102); Mean Platelet Volume 10.7 FL (9.6-12.0); Monocytes % 9.1 % (1.7-12.7); Neutrophils # 7.7 10*3/uL (1.4-7.4); Platelet Count 250 T/CUMM (130-400); Red Blood Count 4.09 MC/CUMM (3.8-5.5); White Blood Count 10.6 T/CUMM (4-12)
[2018-06-27] MEDS ORDERED: SODIUM CHLORIDE 0.9% 500 ML IV ONE (04:19)
[2018-06-27 04:37] LABS: Calcium 8.7 MG/DL (8.5-10.1); Osmolality,Calculated 274.5 MOS/KG (273-304); Potassium 3.9 MMOL/L (3.5-5.1)
[2018-06-27] MEDS: POTASSIUM CHLORIDE 20 MEQ/15 ML UDCUP PER TUBE PRN (04:51)
[2018-06-27 05:17] LABS: ABG Base Excess 2.8 MMOL/L (-2.5-2.5); ABG HCO3 26.9 MMOL/L (20-26); ABG Oxygen Saturation 94.2 % (95-100); ABG PH 7.432 (7.35-7.45); ABG TCO2 24.3 MMOL/L (23-27)
[2018-06-27] MEDS ORDERED: MIDAZOLAM 2 MG/2 ML VIAL IV ONE (07:05)
[2018-06-27] MEDS ORDERED: LIDOCAINE 1% 20 ML VIAL MISC INJ ONE (07:05)
[2018-06-27] MEDS ORDERED: LIDOCAINE 2% 20 ML VIAL RESP TX ONE (07:05)
[2018-06-27] MEDS: DORNASE ALFA 2.5 MG/2.5 ML VIAL RESP TX SCH ×2 (08:45→19:30)
[2018-06-27] MEDS: methylPREDNISolone SOD SUC 40 MG/1 ML VIAL IV SCH ×2 (09:01→16:30)
[2018-06-27] MEDS: SODIUM CHLORIDE/POTASSIUM CHLORIDE TABLET PEG SCH (09:01)
[2018-06-27] MEDS: LANSOPRAZOLE ODT 30 MG TABLET PEG SCH (09:01)
[2018-06-27] MEDS: cefTAZidime 1,000 MG in SYRINGE 1 EACH IV SCH ×2 (09:03→16:29)
[2018-06-27] MEDS: CIPROFLOXACIN INJ 400 MG in PREMIX 1 EACH IV SCH ×2 (09:26→21:37)
[2018-06-27] MEDS: GABAPENTIN 50 MG/ML 30 ML/BOTTLE PO SCH ×3 (09:27→21:37)
[2018-06-27] MEDS: ENOXAPARIN 40 MG/0.4 ML SYRINGE SUBCUT SCH (21:37)
[2018-06-27] MEDS: MORPHINE 4 MG/1 ML VIAL IV PRN (22:43)
[2018-06-27] MEDS: DEXMEDETOMIDINE 200 MCG in SODIUM CHLORIDE 0.9% 48 ML IV PRN (22:44)
[2018-06-28] MEDS: cefTAZidime 1,000 MG in SYRINGE 1 EACH IV SCH ×3 (00:53→17:47)
[2018-06-28] MEDS: VALPROIC ACID 250 MG/5 ML UDCUP PEG SCH ×3 (00:53→17:47)
[2018-06-28] MEDS: methylPREDNISolone SOD SUC 40 MG/1 ML VIAL IV SCH ×3 (00:53→17:48)
[2018-06-28 03:28] LABS: ABG Base Excess 5.5 MMOL/L (-2.5-2.5); ABG HCO3 29.4 MMOL/L (20-26); ABG PCO2 38.8 MM HG (35-48); ABG PH 7.485 (7.35-7.45); ABG TCO2 25.9 MMOL/L (23-27); Allen Test Positive; Pt O2 Delivery Device Ventilator
[2018-06-28 05:53] LABS: Hematocrit 34.4 VOL% (42.0-52.0); Hemoglobin 10.9 GM/DL (14.0-18.0); Immature Granulocytes % 1.6 %; Immature Granulocytes Absolute 0.17 #; Lymphocytes # 0.8 10*3/uL (1.4-4.0); Lymphocytes % 7.2 % (21.2-54.2); Mean Corpuscular HGB Conc 31.7 GM/DL (32-36); Mean Corpuscular Hemoglobin 26 PG (27-34); Mean Corpuscular Volume 80.9 FL (87-102); Mean Platelet Volume 11.7 FL (9.6-12.0); Monocytes # 0.5 10*3/uL (0.11-0.8); Monocytes % 4.4 % (1.7-12.7); Neutrophils # 9.5 10*3/uL (1.4-7.4); Neutrophils % 86.8 % (38.7-73.9); Platelet Count 256 T/CUMM (130-400); Red Blood Count 4.25 MC/CUMM (3.8-5.5); Red Cell Distribution Width 15.9 % (9.3-17.3); White Blood Count 10.9 T/CUMM (4-12)
[2018-06-28 06:08] LABS: Calcium 8.8 MG/DL (8.5-10.1); Osmolality,Calculated 273.8 MOS/KG (273-304); Potassium 4.4 MMOL/L (3.5-5.1)
[2018-06-28] MEDS ORDERED: LIDOCAINE 1%/EPI INJ 20 ML VIAL ONE ×2 (06:22→13:11)
[2018-06-28] MEDS: DORNASE ALFA 2.5 MG/2.5 ML VIAL RESP TX SCH ×2 (07:40→19:35)
[2018-06-28] MEDS: SODIUM CHLORIDE/POTASSIUM CHLORIDE TABLET PEG SCH (08:19)
[2018-06-28] MEDS: CIPROFLOXACIN INJ 400 MG in PREMIX 1 EACH IV SCH ×2 (08:19→20:31)
[2018-06-28] MEDS: LANSOPRAZOLE ODT 30 MG TABLET PEG SCH (08:19)
[2018-06-28] MEDS: GABAPENTIN 50 MG/ML 30 ML/BOTTLE PO SCH ×3 (08:21→20:31)
[2018-06-28] MEDS ORDERED: MICROFIBRILLAR COLLAGEN POWDER 1 GM CAN TOP ONE (13:10)
[2018-06-28] MEDS ORDERED: THROMBIN TOPICAL (RECOMBINANT) 5,000 UNIT VIAL TOP ONE (13:11)
[2018-06-28] MEDS ORDERED: MIDAZOLAM 2 MG/2 ML VIAL ONE (14:03)
[2018-06-28] MEDS ORDERED: SEVOFLURANE 1 UNIT/15 MINUTE INH ONE (14:03)
[2018-06-28] MEDS ORDERED: PHENYLEPHRINE 1 MG/10 ML SYRINGE IV ONE (14:04)
[2018-06-28] MEDS ORDERED: ETOMIDATE 40 MG/20 ML VIAL IV ONE (14:04)
[2018-06-28] MEDS ORDERED: fentaNYL 100 MCG/2 ML VIAL ONE (14:04)
[2018-06-28] MEDS: ENOXAPARIN 40 MG/0.4 ML SYRINGE SUBCUT SCH (20:31)
[2018-06-29] MEDS: methylPREDNISolone SOD SUC 40 MG/1 ML VIAL IV SCH ×2 (00:09→08:59)
[2018-06-29] MEDS: VALPROIC ACID 250 MG/5 ML UDCUP PEG SCH ×2 (00:09→08:59)
[2018-06-29] MEDS: cefTAZidime 1,000 MG in SYRINGE 1 EACH IV SCH ×2 (00:09→08:45)
[2018-06-29 02:56] LABS: Allen Test Positive; Pt O2 Delivery Device Ventilator
[2018-06-29 02:57] LABS: ABG Base Excess 4.7 MMOL/L (-2.5-2.5); ABG HCO3 28.6 MMOL/L (20-26); ABG PCO2 41.3 MM HG (35-48); ABG PH 7.454 (7.35-7.45); ABG PO2 76.1 MM HG (80-95); ABG TCO2 25.8 MMOL/L (23-27)
[2018-06-29] MEDS: MORPHINE 4 MG/1 ML VIAL IV PRN (03:09)
[2018-06-29 05:40] LABS: Basophils % 0.1 % (0.0-0.8); Hematocrit 32.3 VOL% (42.0-52.0); Hemoglobin 10.5 GM/DL (14.0-18.0); Immature Granulocytes % 0.5 %; Immature Granulocytes Absolute 0.05 #; Lymphocytes # 0.8 10*3/uL (1.4-4.0); Lymphocytes % 7.8 % (21.2-54.2); Mean Corpuscular HGB Conc 32.5 GM/DL (32-36); Mean Corpuscular Hemoglobin 26 PG (27-34); Mean Corpuscular Volume 80.3 FL (87-102); Mean Platelet Volume 10.4 FL (9.6-12.0); Monocytes # 0.3 10*3/uL (0.11-0.8); Monocytes % 3.2 % (1.7-12.7); Neutrophils # 9.5 10*3/uL (1.4-7.4); Neutrophils % 88.4 % (38.7-73.9); Platelet Count 269 T/CUMM (130-400); Red Blood Count 4.02 MC/CUMM (3.8-5.5); Red Cell Distribution Width 15.8 % (9.3-17.3); White Blood Count 10.8 T/CUMM (4-12)
[2018-06-29 05:52] LABS: Calcium 9.1 MG/DL (8.5-10.1); Osmolality,Calculated 275.7 MOS/KG (273-304)
[2018-06-29 06:11] VITALS: BP 122/82
[2018-06-29] MEDS: DORNASE ALFA 2.5 MG/2.5 ML VIAL RESP TX SCH (06:58)
[2018-06-29] MEDS: CIPROFLOXACIN INJ 400 MG in PREMIX 1 EACH IV SCH (07:32)
[2018-06-29] MEDS: LANSOPRAZOLE ODT 30 MG TABLET PEG SCH (08:59)
[2018-06-29] MEDS: SODIUM CHLORIDE/POTASSIUM CHLORIDE TABLET PEG SCH (08:59)
[2018-06-29] MEDS: GABAPENTIN 50 MG/ML 30 ML/BOTTLE PO SCH ×2 (09:02→14:39)
== END 2018-06-29 14:55 | DRG 3 ==
LOC: EDUNIT# → EDBD → N.ED 09:31 → SUATTDRO 13:06 → N.EDINP 13:06 → N.2W 13:46 → N.ICU 14:51
PROVIDERS: ADMIT Internal Medicine; ATTEND Family Medicine

== ENCOUNTER 2018-12-23 14:24 | Inpatient (IN) ==
[2018-12-23] MEDS ORDERED: ALBUTEROL 2.5 MG/3 ML NEB RESP TX STA ×2 (14:46→20:17)
[2018-12-23 16:09] LABS: Blood Urea Nitrogen 13 MG/DL (7-18); Calcium 8.7 MG/DL (8.5-10.1); Glucose 83 MG/DL (74-106); Osmolality,Calculated 262.5 MOS/KG (273-304); Potassium 4.5 MMOL/L (3.5-5.1); Sodium 132 MMOL/L (136-145)
[2018-12-23] MEDS ORDERED: CEFEPIME 2,000 MG in SODIUM CHLORIDE 0.9% 100 ML IV STA (19:20)
[2018-12-23] MEDS ORDERED: SODIUM CHLORIDE 0.9% 2,000 ML IV STA (19:20)
[2018-12-23] MEDS ORDERED: VANCOMYCIN INJ 1,000 MG in SODIUM CHLORIDE 0.9% 250 ML IV STA (19:21)
[2018-12-23 19:37] LABS: Basophils % 0.2 % (0.0-0.8); Immature Granulocytes % 0.9 %; Immature Granulocytes Absolute 0.12 #; Lymphocytes # 0.2 10*3/uL (1.4-4.0); Lymphocytes % 1.2 % (21.2-54.2); Mean Corpuscular HGB Conc 31.3 GM/DL (32-36); Mean Corpuscular Hemoglobin 26 PG (27-34); Mean Corpuscular Volume 83.8 FL (87-102); Mean Platelet Volume 10.2 FL (9.6-12.0); Monocytes # 0.4 10*3/uL (0.11-0.8); Monocytes % 3.3 % (1.7-12.7); NRBC # 0.03 10*3/uL; Neutrophils # 12.2 10*3/uL (1.4-7.4); Neutrophils % 94.4 % (38.7-73.9); Platelet Count 259 T/CUMM (130-400); Red Blood Count 3.82 MC/CUMM (3.8-5.5); Red Cell Distribution Width 15.6 % (9.3-17.3); White Blood Count 12.9 T/CUMM (4-12)
[2018-12-23 19:56] LABS: Apearance,Urine CLEAR (Clear); Bacteria,Urine Many /HPF (Few); Bilirubin,Urine Negative (Negative); Blood, Urine Negative (Negative); Glucose,Urine (UA) Negative (Negative); Ketones,Urine 20 mg/dL (Negative); Mucus,Urine Occasional /LPF (Occasional); Nitrite,Urine Negative (Negative); Protein,Urine 30 MG/DL; RBC,Urine 17 /HPF (0-4); Urine Color Yellow (Yellow); Urine Specific Gravity 1.016 (1.001-1.035); Urine Urobilinogen < 2.0 EU/DL (0.2-1.0); WBC,Urine 8 /HPF (0-6)
[2018-12-23 20:00] LABS: Albumin 2.4 G/DL (3.4-5.0); Bilirubin,Total 0.4 MG/DL (0.2-1.0); Calcium 9.1 MG/DL (8.5-10.1); Osmolality,Calculated 261.7 MOS/KG (273-304); Potassium 4.3 MMOL/L (3.5-5.1); Total Protein 8.4 G/DL (6.4-8.3)
[2018-12-23 20:10] LABS: Band Neutrophils 3 % (0-10); Lymphocytes 1 % (20-55); Nucleated Red Blood Cells 1 (0-5); Segmented Neutrophils 93 % (50-85); Total Cells Counted 100
[2018-12-23 20:11] LABS: Hypochromasia Slight; Platelet Estimate Adequate; Polychromasia Few
[2018-12-23] MEDS ORDERED: ACETYLCYSTEINE 20% 800 MG/4 ML VIAL RESP TX ONE (20:18)
[2018-12-24] MEDS ORDERED: ONDANSETRON 4 MG/2 ML VIAL IV PRN (00:49)
[2018-12-24] MEDS ORDERED: DOCUSATE SODIUM 100 MG CAPSULE PO PRN (00:49)
[2018-12-24] MEDS ORDERED: ALBUTEROL 2.5 MG/3 ML NEB RESP TX PRN (00:49)
[2018-12-24] MEDS ORDERED: PIPERACILLIN/TAZOBACTAM 3,375 MG in SODIUM CHLORIDE 0.9% 100 ML IV SCH (01:00)
[2018-12-24 01:34] LABS: Basophils % 0.2 % (0.0-0.8); Hematocrit 27.4 VOL% (42.0-52.0); Hemoglobin 8.8 GM/DL (14.0-18.0); Immature Granulocytes % 0.7 %; Immature Granulocytes Absolute 0.12 #; Lymphocytes # 0.7 10*3/uL (1.4-4.0); Lymphocytes % 4.3 % (21.2-54.2); Mean Corpuscular HGB Conc 32.1 GM/DL (32-36); Mean Corpuscular Hemoglobin 27 PG (27-34); Mean Corpuscular Volume 83.5 FL (87-102); Mean Platelet Volume 10.2 FL (9.6-12.0); Monocytes # 1.2 10*3/uL (0.11-0.8); Monocytes % 6.9 % (1.7-12.7); Neutrophils # 15.1 10*3/uL (1.4-7.4); Neutrophils % 87.9 % (38.7-73.9); Platelet Count 270 T/CUMM (130-400); Red Blood Count 3.28 MC/CUMM (3.8-5.5); Red Cell Distribution Width 15.8 % (9.3-17.3); White Blood Count 17.1 T/CUMM (4-12)
[2018-12-24 01:45] LABS: Calcium 8.2 MG/DL (8.5-10.1); Potassium 3.8 MMOL/L (3.5-5.1)
[2018-12-24] MEDS: ALBUTEROL/IPRATROPIUM 3 ML NEB RESP TX SCH ×4 (02:05→19:11)
[2018-12-24 02:10] LABS: Band Neutrophils 1 % (0-10); Lymphocytes 5 % (20-55); Segmented Neutrophils 91 % (50-85); Total Cells Counted 100
[2018-12-24 02:11] LABS: Polychromasia Slight; Stomatocytes Few
[2018-12-24 02:12] LABS: Anisocytosis Slight; Microcytosis Slight; Spherocytes Slight
[2018-12-24 02:13] LABS: Platelet Estimate Normal
[2018-12-24] MEDS: SODIUM CHLORIDE 0.9% 1,000 ML IV SCH ×3 (03:18→16:34)
[2018-12-24] MEDS: VALPROIC ACID 250 MG/5 ML UDCUP PEG SCH ×3 (03:28→17:26)
[2018-12-24] MEDS: ENOXAPARIN 40 MG/0.4 ML SYRINGE SUBCUT SCH (03:28)
[2018-12-24] MEDS: PIPERACILLIN/TAZOBACTAM 3,375 MG in SODIUM CHLORIDE 0.9% 100 ML IV SCH ×3 (05:18→21:31)
[2018-12-24] MEDS: ACETYLCYSTEINE 20% 800 MG/4 ML VIAL RESP TX SCH ×3 (07:26→19:11)
[2018-12-24] MEDS: BUDESONIDE 0.5 MG/2 ML NEB RESP TX SCH ×2 (07:26→19:11)
[2018-12-24] MEDS ORDERED: SODIUM CHLORIDE 0.9% 1,000 ML IV ONE (08:25)
[2018-12-24] MEDS ORDERED: POTASSIUM IODIDE ORAL SOLN 1,000 MG/ML BOTTLE PEG SCH ×2 (09:00→15:00)
[2018-12-24] MEDS: GABAPENTIN 50 MG/ML 30 ML/BOTTLE PEG SCH ×3 (09:11→21:33)
[2018-12-24] MEDS: predniSONE 10 MG TABLET PEG SCH (09:12)
[2018-12-24] MEDS: PANTOPRAZOLE 40 MG TABLET PO SCH (09:12)
[2018-12-24] MEDS: VANCOMYCIN INJ 1,000 MG in SODIUM CHLORIDE 0.9% 250 ML IV SCH ×2 (09:12→22:34)
[2018-12-24] MEDS: POTASSIUM CHLORIDE 20 MEQ PACK PEG SCH (09:12)
[2018-12-24] MEDS: DILTIAZEM 30 MG TABLET PO SCH ×3 (10:08→21:32)
[2018-12-24] MEDS: METOPROLOL TARTRATE 50 MG TABLET PEG SCH ×2 (10:08→21:33)
[2018-12-24] MEDS: DIGOXIN 0.25 MG TABLET PEG SCH (14:09)
[2018-12-25] MEDS: ALBUTEROL/IPRATROPIUM 3 ML NEB RESP TX SCH ×4 (00:27→20:03)
[2018-12-25] MEDS: ACETYLCYSTEINE 20% 800 MG/4 ML VIAL RESP TX SCH ×3 (00:27→19:54)
[2018-12-25] MEDS: SODIUM CHLORIDE 0.9% 1,000 ML IV SCH ×6 (01:45→23:24)
[2018-12-25] MEDS: ENOXAPARIN 40 MG/0.4 ML SYRINGE SUBCUT SCH (02:05)
[2018-12-25] MEDS: VALPROIC ACID 250 MG/5 ML UDCUP PEG SCH ×3 (02:05→17:45)
[2018-12-25] MEDS: PIPERACILLIN/TAZOBACTAM 3,375 MG in SODIUM CHLORIDE 0.9% 100 ML IV SCH ×3 (05:12→21:25)
[2018-12-25 05:38] LABS: Calcium 8.1 MG/DL (8.5-10.1); Osmolality,Calculated 282.8 MOS/KG (273-304); Potassium 2.7 MMOL/L (3.5-5.1)
[2018-12-25 06:12] LABS: Basophils % 0.2 % (0.0-0.8); Hematocrit 25.9 VOL% (42.0-52.0); Hemoglobin 7.9 GM/DL (14.0-18.0); Immature Granulocytes % 0.8 %; Immature Granulocytes Absolute 0.09 #; Lymphocytes # 1.2 10*3/uL (1.4-4.0); Lymphocytes % 10.9 % (21.2-54.2); Mean Corpuscular HGB Conc 30.5 GM/DL (32-36); Mean Corpuscular Hemoglobin 27 PG (27-34); Mean Corpuscular Volume 87.2 FL (87-102); Mean Platelet Volume 10.5 FL (9.6-12.0); Monocytes % 9.1 % (1.7-12.7); Neutrophils # 8.4 10*3/uL (1.4-7.4); Platelet Count 256 T/CUMM (130-400); Red Blood Count 2.97 MC/CUMM (3.8-5.5); Red Cell Distribution Width 15.9 % (9.3-17.3); White Blood Count 10.7 T/CUMM (4-12)
[2018-12-25] MEDS: POTASSIUM CHLORIDE 20 MEQ/15 ML UDCUP PER TUBE PRN ×5 (06:29→15:07)
[2018-12-25] MEDS: BUDESONIDE 0.5 MG/2 ML NEB RESP TX SCH (07:05)
[2018-12-25] MEDS: DILTIAZEM 30 MG TABLET PO SCH ×3 (08:50→21:26)
[2018-12-25] MEDS: METOPROLOL TARTRATE 50 MG TABLET PEG SCH ×2 (08:51→21:27)
[2018-12-25] MEDS: GABAPENTIN 50 MG/ML 30 ML/BOTTLE PEG SCH ×3 (08:51→21:27)
[2018-12-25] MEDS: predniSONE 10 MG TABLET PEG SCH (08:52)
[2018-12-25] MEDS: POTASSIUM CHLORIDE 20 MEQ PACK PEG SCH (08:52)
[2018-12-25] MEDS: PANTOPRAZOLE 40 MG TABLET PO SCH (08:53)
[2018-12-25] MEDS: VANCOMYCIN INJ 1,000 MG in SODIUM CHLORIDE 0.9% 250 ML IV SCH ×2 (09:53→17:46)
[2018-12-25] MEDS: DIGOXIN 0.25 MG TABLET PEG SCH (12:53)
[2018-12-26] MEDS: ENOXAPARIN 40 MG/0.4 ML SYRINGE SUBCUT SCH (02:02)
[2018-12-26] MEDS: VANCOMYCIN INJ 1,000 MG in SODIUM CHLORIDE 0.9% 250 ML IV SCH (02:03)
[2018-12-26] MEDS: VALPROIC ACID 250 MG/5 ML UDCUP PEG SCH ×3 (02:03→17:47)
[2018-12-26] MEDS: SODIUM CHLORIDE 0.9% 1,000 ML IV SCH ×4 (02:04→17:18)
[2018-12-26] MEDS: ALBUTEROL/IPRATROPIUM 3 ML NEB RESP TX SCH ×4 (02:17→19:16)
[2018-12-26] MEDS: PIPERACILLIN/TAZOBACTAM 3,375 MG in SODIUM CHLORIDE 0.9% 100 ML IV SCH (05:53)
[2018-12-26 06:14] LABS: Basophils % 0.3 % (0.0-0.8); Hematocrit 25.9 VOL% (42.0-52.0); Hemoglobin 7.9 GM/DL (14.0-18.0); Immature Granulocytes % 2.8 %; Immature Granulocytes Absolute 0.25 #; Lymphocytes # 1.7 10*3/uL (1.4-4.0); Lymphocytes % 19.3 % (21.2-54.2); Mean Corpuscular HGB Conc 30.5 GM/DL (32-36); Mean Corpuscular Hemoglobin 26 PG (27-34); Mean Corpuscular Volume 86.3 FL (87-102); Mean Platelet Volume 11.2 FL (9.6-12.0); Monocytes # 0.7 10*3/uL (0.11-0.8); Monocytes % 8.2 % (1.7-12.7); NRBC # 0.03 10*3/uL; Neutrophils # 6.2 10*3/uL (1.4-7.4); Neutrophils % 69.4 % (38.7-73.9); Platelet Count 296 T/CUMM (130-400); Red Cell Distribution Width 15.8 % (9.3-17.3)
[2018-12-26 06:41] LABS: Calcium 8.3 MG/DL (8.5-10.1); Osmolality,Calculated 277.1 MOS/KG (273-304); Potassium 3.5 MMOL/L (3.5-5.1); Prealbumin 11.3 MG/DL (20-40)
[2018-12-26] MEDS: ACETYLCYSTEINE 20% 800 MG/4 ML VIAL RESP TX SCH ×2 (07:52→19:16)
[2018-12-26] MEDS ORDERED: MEROPENEM 1,000 MG in SODIUM CHLORIDE 0.9% 100 ML IV SCH (08:00)
[2018-12-26] MEDS ORDERED: SODIUM CHLORIDE 0.9% IV SCH (08:30)
[2018-12-26] MEDS ORDERED: AMIKACIN IV SCH (08:30)
[2018-12-26] MEDS: HYDROCORTISONE 100 MG VIAL IV SCH ×2 (08:42→21:28)
[2018-12-26] MEDS: PANTOPRAZOLE 40 MG TABLET PO SCH (08:44)
[2018-12-26] MEDS: POTASSIUM CHLORIDE 20 MEQ PACK PEG SCH ×3 (10:19→21:29)
[2018-12-26] MEDS: POTASSIUM CHLORIDE 20 MEQ/15 ML UDCUP PER TUBE PRN (10:20)
[2018-12-26] MEDS: predniSONE 10 MG TABLET PEG SCH (10:20)
[2018-12-26] MEDS: GABAPENTIN 50 MG/ML 30 ML/BOTTLE PEG SCH ×3 (10:22→21:29)
[2018-12-26] MEDS: DILTIAZEM 30 MG TABLET PO SCH ×3 (10:23→21:29)
[2018-12-26] MEDS: METOPROLOL TARTRATE 50 MG TABLET PEG SCH ×2 (10:23→21:29)
[2018-12-26] MEDS: cefTRIAXone 2,000 MG in SYRINGE 1 EACH IV SCH (12:39)
[2018-12-26] MEDS: TOBRAMYCIN INJ 400 MG in SODIUM CHLORIDE 0.9% 100 ML IV SCH (14:53)
[2018-12-26] MEDS: DIGOXIN 0.25 MG TABLET PEG SCH (14:53)
[2018-12-26] MEDS: TOBRAMYCIN 80 MG/2 ML VIAL RESP TX SCH ×2 (15:00→19:16)
[2018-12-26] MEDS: LANSOPRAZOLE ODT 30 MG TABLET PER TUBE SCH (17:47)
[2018-12-27] MEDS: ALBUTEROL/IPRATROPIUM 3 ML NEB RESP TX SCH ×3 (00:42→19:13)
[2018-12-27] MEDS: DESITIN 4OZ/NYSTATIN 15 GRAM MIXTURE PASTE TOP SCH (01:30)
[2018-12-27] MEDS: ENOXAPARIN 40 MG/0.4 ML SYRINGE SUBCUT SCH (01:50)
[2018-12-27] MEDS: VALPROIC ACID 250 MG/5 ML UDCUP PEG SCH ×3 (01:55→18:00)
[2018-12-27] MEDS: SODIUM CHLORIDE 0.9% 1,000 ML IV SCH ×4 (02:50→22:07)
[2018-12-27] MEDS: POTASSIUM CHLORIDE 20 MEQ PACK PEG SCH ×4 (03:15→21:38)
[2018-12-27 04:17] LABS: Basophils % 0.1 % (0.0-0.8); Hematocrit 27.3 VOL% (42.0-52.0); Hemoglobin 8.6 GM/DL (14.0-18.0); Immature Granulocytes % 5.9 %; Immature Granulocytes Absolute 0.43 #; Lymphocytes # 0.8 10*3/uL (1.4-4.0); Lymphocytes % 11.5 % (21.2-54.2); Mean Corpuscular HGB Conc 31.5 GM/DL (32-36); Mean Corpuscular Hemoglobin 26 PG (27-34); Mean Corpuscular Volume 83.7 FL (87-102); Mean Platelet Volume 10.3 FL (9.6-12.0); Monocytes # 0.2 10*3/uL (0.11-0.8); Monocytes % 3.3 % (1.7-12.7); NRBC # 0.03 10*3/uL; Neutrophils # 5.8 10*3/uL (1.4-7.4); Neutrophils % 79.2 % (38.7-73.9); Platelet Count 325 T/CUMM (130-400); Red Blood Count 3.26 MC/CUMM (3.8-5.5); Red Cell Distribution Width 15.4 % (9.3-17.3); White Blood Count 7.3 T/CUMM (4-12)
[2018-12-27 04:35] LABS: Osmolality,Calculated 277.5 MOS/KG (273-304); Potassium 3.8 MMOL/L (3.5-5.1)
[2018-12-27 05:21] LABS: Lymphocytes 11 % (20-55); Myelocytes 1 %; Nucleated Red Blood Cells 1 (0-5); Platelet Estimate Adequate; Segmented Neutrophils 85 % (50-85); Total Cells Counted 100
[2018-12-27 05:22] LABS: Anisocytosis 2+; Hypochromasia 1+; Microcytosis Slight; Target Cells Few
[2018-12-27 05:24] LABS: Spherocytes Few; Stomatocytes Few
[2018-12-27] MEDS ORDERED: HYDROCORTISONE 100 MG VIAL IV SCH (08:00)
[2018-12-27] MEDS ORDERED: MAGNESIUM SULF RIDER 4 GM in PREMIX 1 EACH IV ONE (08:03)
[2018-12-27] MEDS: ACETYLCYSTEINE 20% 800 MG/4 ML VIAL RESP TX SCH ×2 (08:36→19:13)
[2018-12-27] MEDS: TOBRAMYCIN 80 MG/2 ML VIAL RESP TX SCH ×2 (08:51→19:13)
[2018-12-27] MEDS ORDERED: AMIKACIN IV SCH (10:00)
[2018-12-27] MEDS ORDERED: SODIUM CHLORIDE 0.9% IV SCH (10:00)
[2018-12-27] MEDS: GABAPENTIN 50 MG/ML 30 ML/BOTTLE PEG SCH ×3 (10:07→21:40)
[2018-12-27] MEDS: DILTIAZEM 30 MG TABLET PO SCH ×3 (10:08→21:38)
[2018-12-27] MEDS: LANSOPRAZOLE ODT 30 MG TABLET PER TUBE SCH (10:08)
[2018-12-27] MEDS: METOPROLOL TARTRATE 50 MG TABLET PEG SCH ×2 (10:09→21:40)
[2018-12-27] MEDS: predniSONE 10 MG TABLET PEG SCH (10:09)
[2018-12-27 10:23] LABS: % Iron Saturation 26.2 % (18-50)
[2018-12-27 10:33] LABS: Folate 9.6 NG/ML (5.4-24.0); Vitamin B12 > 2000 PG/ML (211-911)
[2018-12-27] MEDS: cefTRIAXone 2,000 MG in SYRINGE 1 EACH IV SCH (13:25)
[2018-12-27] MEDS: DIGOXIN 0.25 MG TABLET PEG SCH (13:26)
[2018-12-27] MEDS: TOBRAMYCIN INJ 400 MG in SODIUM CHLORIDE 0.9% 100 ML IV SCH (13:31)
[2018-12-27] MEDS: HYDROCORTISONE 100 MG VIAL IV SCH (16:22)
[2018-12-27] MEDS ORDERED: POTASSIUM IODIDE ORAL SOLN 1,000 MG/ML BOTTLE PEG SCH (21:00)
[2018-12-28] MEDS: ALBUTEROL/IPRATROPIUM 3 ML NEB RESP TX SCH ×4 (00:49→19:12)
[2018-12-28] MEDS: POTASSIUM CHLORIDE 20 MEQ PACK PEG SCH ×4 (01:53→21:33)
[2018-12-28] MEDS: VALPROIC ACID 250 MG/5 ML UDCUP PEG SCH ×3 (01:53→17:38)
[2018-12-28] MEDS: ENOXAPARIN 40 MG/0.4 ML SYRINGE SUBCUT SCH (01:53)
[2018-12-28] MEDS: SODIUM CHLORIDE 0.9% 1,000 ML IV SCH ×3 (04:34→22:26)
[2018-12-28] MEDS: DESITIN 4OZ/NYSTATIN 15 GRAM MIXTURE PASTE TOP SCH ×3 (05:00→22:21)
[2018-12-28 06:17] LABS: Basophils % 0.5 % (0.0-0.8); Hemoglobin 8.4 GM/DL (14.0-18.0); Immature Granulocytes % 6.6 %; Immature Granulocytes Absolute 0.54 #; Lymphocytes # 2.8 10*3/uL (1.4-4.0); Mean Corpuscular HGB Conc 31.1 GM/DL (32-36); Mean Corpuscular Hemoglobin 27 PG (27-34); Mean Corpuscular Volume 85.7 FL (87-102); Mean Platelet Volume 10.4 FL (9.6-12.0); Monocytes # 0.7 10*3/uL (0.11-0.8); Monocytes % 8.7 % (1.7-12.7); NRBC # 0.07 10*3/uL; Neutrophils # 4.1 10*3/uL (1.4-7.4); Neutrophils % 50.2 % (38.7-73.9); Platelet Count 360 T/CUMM (130-400); Red Blood Count 3.15 MC/CUMM (3.8-5.5); Red Cell Distribution Width 15.7 % (9.3-17.3); White Blood Count 8.2 T/CUMM (4-12)
[2018-12-28 06:45] LABS: Calcium 8.5 MG/DL (8.5-10.1); Osmolality,Calculated 272.5 MOS/KG (273-304); Potassium 3.9 MMOL/L (3.5-5.1)
[2018-12-28] MEDS: ACETYLCYSTEINE 20% 800 MG/4 ML VIAL RESP TX SCH ×2 (07:05→19:12)
[2018-12-28] MEDS: TOBRAMYCIN 80 MG/2 ML VIAL RESP TX SCH ×2 (07:06→19:14)
[2018-12-28 07:11] LABS: Hypochromasia 1+; Lymphocytes 25 % (20-55); Platelet Estimate Adequate; Segmented Neutrophils 60 % (50-85); Total Cells Counted 100
[2018-12-28 07:12] LABS: Microcytosis Slight
[2018-12-28] MEDS: GABAPENTIN 50 MG/ML 30 ML/BOTTLE PEG SCH ×3 (10:42→22:21)
[2018-12-28] MEDS: DILTIAZEM 30 MG TABLET PO SCH ×3 (10:43→21:54)
[2018-12-28] MEDS: predniSONE 10 MG TABLET PEG SCH (10:44)
[2018-12-28] MEDS: METOPROLOL TARTRATE 50 MG TABLET PEG SCH ×2 (10:44→21:55)
[2018-12-28] MEDS: LANSOPRAZOLE ODT 30 MG TABLET PER TUBE SCH (10:45)
[2018-12-28] MEDS: PIPERACILLIN/TAZOBACTAM 3,375 MG in SODIUM CHLORIDE 0.9% 100 ML IV SCH ×2 (12:36→21:33)
[2018-12-28] MEDS: DIGOXIN 0.25 MG TABLET PEG SCH (14:20)
[2018-12-28] MEDS: TOBRAMYCIN INJ 400 MG in SODIUM CHLORIDE 0.9% 100 ML IV SCH (16:40)
[2018-12-29] MEDS: ALBUTEROL/IPRATROPIUM 3 ML NEB RESP TX SCH ×5 (00:32→19:26)
[2018-12-29] MEDS: POTASSIUM CHLORIDE 20 MEQ PACK PEG SCH ×4 (01:53→21:12)
[2018-12-29] MEDS: VALPROIC ACID 250 MG/5 ML UDCUP PEG SCH ×3 (01:53→17:31)
[2018-12-29] MEDS: SODIUM CHLORIDE 0.9% 1,000 ML IV SCH ×2 (01:53→10:10)
[2018-12-29] MEDS: ENOXAPARIN 40 MG/0.4 ML SYRINGE SUBCUT SCH (01:53)
[2018-12-29] MEDS: PIPERACILLIN/TAZOBACTAM 3,375 MG in SODIUM CHLORIDE 0.9% 100 ML IV SCH ×3 (04:47→21:07)
[2018-12-29 05:54] LABS: Basophils % 0.3 % (0.0-0.8); Eosinophils % 0.1 % (0.00-10.9); Hematocrit 28.9 VOL% (42.0-52.0); Immature Granulocytes % 4.1 %; Immature Granulocytes Absolute 0.37 #; Lymphocytes # 2.7 10*3/uL (1.4-4.0); Lymphocytes % 30.4 % (21.2-54.2); Mean Corpuscular HGB Conc 31.1 GM/DL (32-36); Mean Corpuscular Hemoglobin 26 PG (27-34); Mean Corpuscular Volume 84.5 FL (87-102); Mean Platelet Volume 10.3 FL (9.6-12.0); Monocytes # 0.9 10*3/uL (0.11-0.8); Monocytes % 10.1 % (1.7-12.7); NRBC # 0.08 10*3/uL; Neutrophils # 4.9 10*3/uL (1.4-7.4); Platelet Count 393 T/CUMM (130-400); Red Blood Count 3.42 MC/CUMM (3.8-5.5); Red Cell Distribution Width 15.7 % (9.3-17.3); White Blood Count 8.9 T/CUMM (4-12)
[2018-12-29 06:12] LABS: Calcium 8.8 MG/DL (8.5-10.1); Potassium 4.4 MMOL/L (3.5-5.1)
[2018-12-29 06:17] LABS: Prealbumin 26.6 MG/DL (20-40)
[2018-12-29] MEDS: ACETYLCYSTEINE 20% 800 MG/4 ML VIAL RESP TX SCH ×2 (08:26→19:26)
[2018-12-29] MEDS: TOBRAMYCIN 80 MG/2 ML VIAL RESP TX SCH ×2 (08:27→19:26)
[2018-12-29] MEDS: predniSONE 10 MG TABLET PEG SCH (09:59)
[2018-12-29] MEDS: DILTIAZEM 30 MG TABLET PO SCH ×3 (09:59→21:11)
[2018-12-29] MEDS: METOPROLOL TARTRATE 50 MG TABLET PEG SCH ×2 (09:59→21:11)
[2018-12-29] MEDS: LANSOPRAZOLE ODT 30 MG TABLET PER TUBE SCH (10:00)
[2018-12-29] MEDS: GABAPENTIN 50 MG/ML 30 ML/BOTTLE PEG SCH ×3 (10:01→21:00)
[2018-12-29] MEDS: DESITIN 4OZ/NYSTATIN 15 GRAM MIXTURE PASTE TOP SCH (10:02)
[2018-12-29] MEDS ORDERED: DEXTROSE 50% 25 GM/50 ML VIAL IV ONE (11:54)
[2018-12-29] MEDS: DEXTROSE 5% NACL 0.45% 1,000 ML IV SCH (13:43)
[2018-12-29] MEDS: TOBRAMYCIN INJ 400 MG in SODIUM CHLORIDE 0.9% 100 ML IV SCH (13:46)
[2018-12-29] MEDS: DIGOXIN 0.25 MG TABLET PEG SCH (13:50)
[2018-12-29] MEDS: HYDROCORTISONE 100 MG VIAL IV SCH (13:54)
[2018-12-30] MEDS: ALBUTEROL/IPRATROPIUM 3 ML NEB RESP TX SCH ×4 (00:17→19:25)
[2018-12-30] MEDS: ACETAMINOPHEN 325 MG TABLET PO PRN ×2 (00:26→04:42)
[2018-12-30] MEDS: DESITIN 4OZ/NYSTATIN 15 GRAM MIXTURE PASTE TOP SCH ×3 (00:26→21:35)
[2018-12-30] MEDS: VALPROIC ACID 250 MG/5 ML UDCUP PEG SCH ×3 (00:32→17:59)
[2018-12-30] MEDS: ENOXAPARIN 40 MG/0.4 ML SYRINGE SUBCUT SCH (00:48)
[2018-12-30] MEDS: HYDROCORTISONE 100 MG VIAL IV SCH ×2 (00:49→12:48)
[2018-12-30] MEDS: POTASSIUM CHLORIDE 20 MEQ PACK PEG SCH ×4 (01:15→21:34)
[2018-12-30] MEDS: PIPERACILLIN/TAZOBACTAM 3,375 MG in SODIUM CHLORIDE 0.9% 100 ML IV SCH ×3 (04:42→21:34)
[2018-12-30 06:40] LABS: Calcium 8.5 MG/DL (8.5-10.1); Osmolality,Calculated 264.4 MOS/KG (273-304); Potassium 4.2 MMOL/L (3.5-5.1)
[2018-12-30 06:47] LABS: Basophils % 0.1 % (0.0-0.8); Hematocrit 26.8 VOL% (42.0-52.0); Hemoglobin 8.4 GM/DL (14.0-18.0); Immature Granulocytes % 1.6 %; Immature Granulocytes Absolute 0.15 #; Lymphocytes # 0.9 10*3/uL (1.4-4.0); Lymphocytes % 9.5 % (21.2-54.2); Mean Corpuscular HGB Conc 31.3 GM/DL (32-36); Mean Corpuscular Hemoglobin 27 PG (27-34); Mean Corpuscular Volume 84.5 FL (87-102); Mean Platelet Volume 9.9 FL (9.6-12.0); Monocytes # 0.3 10*3/uL (0.11-0.8); Monocytes % 3.7 % (1.7-12.7); NRBC # 0.02 10*3/uL; Neutrophils # 7.8 10*3/uL (1.4-7.4); Neutrophils % 85.1 % (38.7-73.9); Platelet Count 389 T/CUMM (130-400); Red Blood Count 3.17 MC/CUMM (3.8-5.5); Red Cell Distribution Width 16.2 % (9.3-17.3); White Blood Count 9.2 T/CUMM (4-12)
[2018-12-30] MEDS: TOBRAMYCIN 80 MG/2 ML VIAL RESP TX SCH ×2 (07:15→19:25)
[2018-12-30] MEDS: ACETYLCYSTEINE 20% 800 MG/4 ML VIAL RESP TX SCH ×2 (07:15→19:45)
[2018-12-30] MEDS: DILTIAZEM 30 MG TABLET PO SCH ×3 (10:26→21:35)
[2018-12-30] MEDS: GABAPENTIN 50 MG/ML 30 ML/BOTTLE PEG SCH ×3 (10:26→21:35)
[2018-12-30] MEDS: METOPROLOL TARTRATE 50 MG TABLET PEG SCH ×2 (10:26→21:35)
[2018-12-30] MEDS: LANSOPRAZOLE ODT 30 MG TABLET PER TUBE SCH (10:27)
[2018-12-30] MEDS: DEXTROSE 5% NACL 0.45% 1,000 ML IV SCH ×4 (10:33→19:41)
[2018-12-30] MEDS: DIGOXIN 0.25 MG TABLET PEG SCH (12:49)
[2018-12-30] MEDS: TOBRAMYCIN INJ 400 MG in SODIUM CHLORIDE 0.9% 100 ML IV SCH (16:04)
[2018-12-31] MEDS: HYDROCORTISONE 100 MG VIAL IV SCH ×2 (01:11→12:03)
[2018-12-31] MEDS: ENOXAPARIN 40 MG/0.4 ML SYRINGE SUBCUT SCH (01:12)
[2018-12-31] MEDS: POTASSIUM CHLORIDE 20 MEQ PACK PEG SCH ×4 (01:12→22:20)
[2018-12-31] MEDS: VALPROIC ACID 250 MG/5 ML UDCUP PEG SCH ×3 (01:12→17:40)
[2018-12-31] MEDS: ALBUTEROL/IPRATROPIUM 3 ML NEB RESP TX SCH ×4 (03:00→19:15)
[2018-12-31] MEDS: PIPERACILLIN/TAZOBACTAM 3,375 MG in SODIUM CHLORIDE 0.9% 100 ML IV SCH ×3 (04:55→20:56)
[2018-12-31] MEDS: DEXTROSE 5% NACL 0.45% 1,000 ML IV SCH ×2 (05:37→12:03)
[2018-12-31 05:40] LABS: Basophils % 0.1 % (0.0-0.8); Hematocrit 27.6 VOL% (42.0-52.0); Hemoglobin 8.3 GM/DL (14.0-18.0); Immature Granulocytes % 0.7 %; Immature Granulocytes Absolute 0.11 #; Lymphocytes # 0.7 10*3/uL (1.4-4.0); Lymphocytes % 4.4 % (21.2-54.2); Mean Corpuscular HGB Conc 30.1 GM/DL (32-36); Mean Corpuscular Hemoglobin 26 PG (27-34); Mean Corpuscular Volume 87.9 FL (87-102); Mean Platelet Volume 11.6 FL (9.6-12.0); Monocytes # 0.4 10*3/uL (0.11-0.8); Monocytes % 2.4 % (1.7-12.7); Neutrophils # 14.4 10*3/uL (1.4-7.4); Neutrophils % 92.4 % (38.7-73.9); Platelet Count 204 T/CUMM (130-400); Red Blood Count 3.14 MC/CUMM (3.8-5.5); Red Cell Distribution Width 16.6 % (9.3-17.3); White Blood Count 15.6 T/CUMM (4-12)
[2018-12-31 05:50] LABS: Calcium 8.6 MG/DL (8.5-10.1); Osmolality,Calculated 275.8 MOS/KG (273-304); Potassium 4.3 MMOL/L (3.5-5.1)
[2018-12-31 06:16] LABS: Band Neutrophils 1 % (0-10); Lymphocytes 6 % (20-55); Myelocytes 1 %; Segmented Neutrophils 89 % (50-85)
[2018-12-31 06:17] LABS: Hypochromasia 1+; Platelet Estimate Normal; Polychromasia Few
[2018-12-31 06:18] LABS: Target Cells Few; Total Cells Counted 100
[2018-12-31] MEDS: TOBRAMYCIN 80 MG/2 ML VIAL RESP TX SCH ×2 (07:13→19:15)
[2018-12-31] MEDS: ACETYLCYSTEINE 20% 800 MG/4 ML VIAL RESP TX SCH ×2 (07:13→19:15)
[2018-12-31] MEDS: METOPROLOL TARTRATE 50 MG TABLET PEG SCH ×2 (10:18→20:54)
[2018-12-31] MEDS: LANSOPRAZOLE ODT 30 MG TABLET PER TUBE SCH (10:19)
[2018-12-31] MEDS: DILTIAZEM 30 MG TABLET PO SCH ×3 (10:20→20:49)
[2018-12-31] MEDS: DESITIN 4OZ/NYSTATIN 15 GRAM MIXTURE PASTE TOP SCH ×2 (10:39→20:55)
[2018-12-31] MEDS: GABAPENTIN 50 MG/ML 30 ML/BOTTLE PEG SCH ×3 (10:58→20:47)
[2018-12-31] MEDS: TOBRAMYCIN INJ 400 MG in SODIUM CHLORIDE 0.9% 100 ML IV SCH (12:07)
[2018-12-31] MEDS: DIGOXIN 0.25 MG TABLET PEG SCH (14:50)
[2018-12-31 15:23] LABS: % Iron Saturation 7.1 % (18-50); Ferritin 177.2 ng/ml (26-388)
[2018-12-31] MEDS: ACETAMINOPHEN 325 MG TABLET PO PRN (20:53)
[2019-01-01] MEDS: HYDROCORTISONE 100 MG VIAL IV SCH ×2 (00:28→12:20)
[2019-01-01] MEDS: ALBUTEROL/IPRATROPIUM 3 ML NEB RESP TX SCH ×4 (00:56→20:12)
[2019-01-01] MEDS: ENOXAPARIN 40 MG/0.4 ML SYRINGE SUBCUT SCH ×2 (02:30→21:43)
[2019-01-01] MEDS: VALPROIC ACID 250 MG/5 ML UDCUP PEG SCH ×3 (02:30→16:57)
[2019-01-01] MEDS: POTASSIUM CHLORIDE 20 MEQ PACK PEG SCH ×4 (02:30→21:41)
[2019-01-01] MEDS: DEXTROSE 5% NACL 0.45% 1,000 ML IV SCH ×3 (05:49→16:58)
[2019-01-01] MEDS: PIPERACILLIN/TAZOBACTAM 3,375 MG in SODIUM CHLORIDE 0.9% 100 ML IV SCH ×3 (05:51→20:29)
[2019-01-01] MEDS: ACETYLCYSTEINE 20% 800 MG/4 ML VIAL RESP TX SCH ×2 (07:54→20:12)
[2019-01-01] MEDS: TOBRAMYCIN 80 MG/2 ML VIAL RESP TX SCH ×2 (07:55→20:12)
[2019-01-01] MEDS: DILTIAZEM 30 MG TABLET PO SCH ×3 (11:09→21:41)
[2019-01-01] MEDS: LANSOPRAZOLE ODT 30 MG TABLET PER TUBE SCH (11:09)
[2019-01-01] MEDS: METOPROLOL TARTRATE 50 MG TABLET PEG SCH ×2 (11:09→21:42)
[2019-01-01] MEDS: GABAPENTIN 50 MG/ML 30 ML/BOTTLE PEG SCH ×3 (11:12→21:43)
[2019-01-01] MEDS: DESITIN 4OZ/NYSTATIN 15 GRAM MIXTURE PASTE TOP SCH ×2 (11:12→21:43)
[2019-01-01] MEDS: DIGOXIN 0.25 MG TABLET PEG SCH (15:03)
[2019-01-01] MEDS: ACETAMINOPHEN 325 MG TABLET PO PRN (15:03)
[2019-01-01] MEDS: TOBRAMYCIN INJ 400 MG in SODIUM CHLORIDE 0.9% 100 ML IV SCH ×2 (15:04→16:58)
[2019-01-01 16:11] LABS: Apearance,Urine CLEAR (Clear); Bilirubin,Urine Negative (Negative); Blood, Urine Negative (Negative); Glucose,Urine (UA) 50 mg/dL (Negative); Ketones,Urine Negative (Negative); Mucus,Urine Occasional /LPF (Occasional); Nitrite,Urine Negative (Negative); Protein,Urine Negative; RBC,Urine 2 /HPF (0-4); Urine Color Yellow (Yellow); Urine Specific Gravity 1.017 (1.001-1.035); Urine Urobilinogen < 2.0 EU/DL (0.2-1.0); WBC,Urine 3 /HPF (0-6)
[2019-01-02] MEDS: ALBUTEROL/IPRATROPIUM 3 ML NEB RESP TX SCH ×4 (00:52→18:30)
[2019-01-02] MEDS: HYDROCORTISONE 100 MG VIAL IV SCH ×2 (00:57→16:17)
[2019-01-02] MEDS: POTASSIUM CHLORIDE 20 MEQ PACK PEG SCH ×4 (01:01→22:10)
[2019-01-02] MEDS: VALPROIC ACID 250 MG/5 ML UDCUP PEG SCH ×4 (01:01→16:53)
[2019-01-02] MEDS: PIPERACILLIN/TAZOBACTAM 3,375 MG in SODIUM CHLORIDE 0.9% 100 ML IV SCH ×3 (03:49→22:10)
[2019-01-02] MEDS: DEXTROSE 5% NACL 0.45% 1,000 ML IV SCH ×4 (03:58→22:19)
[2019-01-02 06:19] LABS: Basophils % 0.1 % (0.0-0.8); Hematocrit 24.8 VOL% (42.0-52.0); Immature Granulocytes % 0.4 %; Immature Granulocytes Absolute 0.07 #; Lymphocytes # 0.6 10*3/uL (1.4-4.0); Lymphocytes % 3.6 % (21.2-54.2); Mean Corpuscular HGB Conc 32.3 GM/DL (32-36); Mean Corpuscular Hemoglobin 28 PG (27-34); Mean Corpuscular Volume 85.2 FL (87-102); Mean Platelet Volume 10.5 FL (9.6-12.0); Monocytes # 0.3 10*3/uL (0.11-0.8); Monocytes % 1.7 % (1.7-12.7); Neutrophils # 15.5 10*3/uL (1.4-7.4); Neutrophils % 94.2 % (38.7-73.9); Platelet Count 310 T/CUMM (130-400); Red Blood Count 2.91 MC/CUMM (3.8-5.5); Red Cell Distribution Width 16.8 % (9.3-17.3); White Blood Count 16.5 T/CUMM (4-12)
[2019-01-02 06:33] LABS: Calcium 8.3 MG/DL (8.5-10.1); Osmolality,Calculated 274.8 MOS/KG (273-304); Potassium 3.7 MMOL/L (3.5-5.1)
[2019-01-02 06:50] LABS: Hypochromasia 1+; Lymphocytes 2 % (20-55); Microcytosis 1+; Platelet Estimate Normal; Polychromasia Few; Segmented Neutrophils 94 % (50-85); Total Cells Counted 100
[2019-01-02] MEDS: ACETYLCYSTEINE 20% 800 MG/4 ML VIAL RESP TX SCH ×2 (08:21→18:30)
[2019-01-02] MEDS: TOBRAMYCIN 80 MG/2 ML VIAL RESP TX SCH ×2 (08:22→18:30)
[2019-01-02] MEDS: DILTIAZEM 30 MG TABLET PO SCH ×3 (09:46→22:11)
[2019-01-02] MEDS: METOPROLOL TARTRATE 50 MG TABLET PEG SCH ×2 (09:47→22:11)
[2019-01-02] MEDS: LANSOPRAZOLE ODT 30 MG TABLET PER TUBE SCH (09:48)
[2019-01-02] MEDS: GABAPENTIN 50 MG/ML 30 ML/BOTTLE PEG SCH ×3 (09:48→22:17)
[2019-01-02] MEDS: DESITIN 4OZ/NYSTATIN 15 GRAM MIXTURE PASTE TOP SCH ×2 (09:50→22:12)
[2019-01-02] MEDS: VANCOMYCIN INJ 1,250 MG in SODIUM CHLORIDE 0.9% 250 ML IV SCH (10:03)
[2019-01-02] MEDS: FLUCONAZOLE INJ 200 MG in PREMIX 1 EACH IV SCH (12:09)
[2019-01-02] MEDS: DIGOXIN 0.25 MG TABLET PEG SCH (16:16)
[2019-01-02] MEDS: ACETAMINOPHEN 325 MG TABLET PO PRN ×2 (17:14→22:11)
[2019-01-02] MEDS: ENOXAPARIN 40 MG/0.4 ML SYRINGE SUBCUT SCH (22:11)
[2019-01-03] MEDS: ALBUTEROL/IPRATROPIUM 3 ML NEB RESP TX SCH ×4 (00:34→19:39)
[2019-01-03] MEDS: HYDROCORTISONE 100 MG VIAL IV SCH ×2 (00:40→12:22)
[2019-01-03] MEDS: POTASSIUM CHLORIDE 20 MEQ PACK PEG SCH ×4 (02:20→20:53)
[2019-01-03] MEDS: VALPROIC ACID 250 MG/5 ML UDCUP PEG SCH ×3 (02:20→16:45)
[2019-01-03] MEDS: VANCOMYCIN INJ 1,250 MG in SODIUM CHLORIDE 0.9% 250 ML IV SCH ×2 (02:21→09:37)
[2019-01-03] MEDS: PIPERACILLIN/TAZOBACTAM 3,375 MG in SODIUM CHLORIDE 0.9% 100 ML IV SCH ×3 (03:46→20:52)
[2019-01-03] MEDS: ACETYLCYSTEINE 20% 800 MG/4 ML VIAL RESP TX SCH ×2 (08:05→19:39)
[2019-01-03] MEDS: TOBRAMYCIN 80 MG/2 ML VIAL RESP TX SCH ×2 (08:06→19:53)
[2019-01-03] MEDS: DILTIAZEM 30 MG TABLET PO SCH ×3 (09:22→20:53)
[2019-01-03] MEDS: DEXTROSE 5% NACL 0.45% 1,000 ML IV SCH ×2 (09:22→16:46)
[2019-01-03] MEDS: LANSOPRAZOLE ODT 30 MG TABLET PER TUBE SCH (09:23)
[2019-01-03] MEDS: DESITIN 4OZ/NYSTATIN 15 GRAM MIXTURE PASTE TOP SCH ×2 (09:23→22:35)
[2019-01-03] MEDS: METOPROLOL TARTRATE 50 MG TABLET PEG SCH ×2 (09:23→20:53)
[2019-01-03] MEDS: GABAPENTIN 50 MG/ML 30 ML/BOTTLE PEG SCH ×3 (09:24→20:53)
[2019-01-03] MEDS: ACETAMINOPHEN 325 MG TABLET PO PRN (09:39)
[2019-01-03] MEDS: FLUCONAZOLE INJ 200 MG in PREMIX 1 EACH IV SCH (12:21)
[2019-01-03] MEDS: DIGOXIN 0.25 MG TABLET PEG SCH (16:44)
[2019-01-03] MEDS: ENOXAPARIN 40 MG/0.4 ML SYRINGE SUBCUT SCH (20:53)
[2019-01-04] MEDS: VANCOMYCIN INJ 1,250 MG in SODIUM CHLORIDE 0.9% 250 ML IV SCH ×2 (00:37→09:04)
[2019-01-04] MEDS: DEXTROSE 5% NACL 0.45% 1,000 ML IV SCH (00:38)
[2019-01-04] MEDS: HYDROCORTISONE 100 MG VIAL IV SCH ×2 (00:38→12:02)
[2019-01-04] MEDS: ALBUTEROL/IPRATROPIUM 3 ML NEB RESP TX SCH ×4 (01:35→19:34)
[2019-01-04] MEDS: POTASSIUM CHLORIDE 20 MEQ PACK PEG SCH ×4 (03:26→21:09)
[2019-01-04] MEDS: VALPROIC ACID 250 MG/5 ML UDCUP PEG SCH ×3 (03:26→17:05)
[2019-01-04] MEDS: PIPERACILLIN/TAZOBACTAM 3,375 MG in SODIUM CHLORIDE 0.9% 100 ML IV SCH ×3 (04:51→21:11)
[2019-01-04 05:27] LABS: Calcium 8.7 MG/DL (8.5-10.1); Potassium 3.6 MMOL/L (3.5-5.1)
[2019-01-04 05:34] LABS: Basophils % 0.1 % (0.0-0.8); Hematocrit 26.2 VOL% (42.0-52.0); Hemoglobin 8.3 GM/DL (14.0-18.0); Immature Granulocytes % 0.4 %; Immature Granulocytes Absolute 0.04 #; Lymphocytes # 0.6 10*3/uL (1.4-4.0); Lymphocytes % 5.8 % (21.2-54.2); Mean Corpuscular HGB Conc 31.7 GM/DL (32-36); Mean Corpuscular Hemoglobin 27 PG (27-34); Mean Corpuscular Volume 84.5 FL (87-102); Mean Platelet Volume 11.1 FL (9.6-12.0); Monocytes # 0.5 10*3/uL (0.11-0.8); Monocytes % 4.3 % (1.7-12.7); Neutrophils # 9.9 10*3/uL (1.4-7.4); Neutrophils % 89.4 % (38.7-73.9); Platelet Count 302 T/CUMM (130-400); Red Cell Distribution Width 16.6 % (9.3-17.3); White Blood Count 11.1 T/CUMM (4-12)
[2019-01-04] MEDS: ACETYLCYSTEINE 20% 800 MG/4 ML VIAL RESP TX SCH ×2 (07:27→19:35)
[2019-01-04] MEDS: TOBRAMYCIN 80 MG/2 ML VIAL RESP TX SCH ×2 (07:27→19:36)
[2019-01-04] MEDS: GABAPENTIN 50 MG/ML 30 ML/BOTTLE PEG SCH ×2 (09:00→17:03)
[2019-01-04] MEDS: DILTIAZEM 30 MG TABLET PO SCH ×3 (09:55→21:08)
[2019-01-04] MEDS: METOPROLOL TARTRATE 50 MG TABLET PEG SCH ×2 (09:55→21:08)
[2019-01-04] MEDS: LANSOPRAZOLE ODT 30 MG TABLET PER TUBE SCH (09:55)
[2019-01-04] MEDS: DESITIN 4OZ/NYSTATIN 15 GRAM MIXTURE PASTE TOP SCH (10:02)
[2019-01-04] MEDS: FLUCONAZOLE INJ 200 MG in PREMIX 1 EACH IV SCH (12:03)
[2019-01-04] MEDS: DIGOXIN 0.25 MG TABLET PEG SCH (15:56)
[2019-01-04] MEDS: ENOXAPARIN 40 MG/0.4 ML SYRINGE SUBCUT SCH (21:11)
[2019-01-05] MEDS: ALBUTEROL/IPRATROPIUM 3 ML NEB RESP TX SCH ×3 (01:00→14:35)
[2019-01-05] MEDS: HYDROCORTISONE 100 MG VIAL IV SCH ×2 (01:52→12:20)
[2019-01-05] MEDS: VALPROIC ACID 250 MG/5 ML UDCUP PEG SCH ×2 (01:52→08:43)
[2019-01-05] MEDS: GABAPENTIN 50 MG/ML 30 ML/BOTTLE PEG SCH ×2 (01:52→08:44)
[2019-01-05] MEDS: DESITIN 4OZ/NYSTATIN 15 GRAM MIXTURE PASTE TOP SCH ×2 (01:53→08:44)
[2019-01-05] MEDS: POTASSIUM CHLORIDE 20 MEQ PACK PEG SCH ×2 (01:53→08:43)
[2019-01-05] MEDS: DEXTROSE 5% NACL 0.45% 1,000 ML IV SCH (03:14)
[2019-01-05] MEDS: PIPERACILLIN/TAZOBACTAM 3,375 MG in SODIUM CHLORIDE 0.9% 100 ML IV SCH ×2 (04:19→12:20)
[2019-01-05 05:33] LABS: Prealbumin 29.4 MG/DL (20-40)
[2019-01-05] MEDS: ACETYLCYSTEINE 20% 800 MG/4 ML VIAL RESP TX SCH (07:14)
[2019-01-05] MEDS: TOBRAMYCIN 80 MG/2 ML VIAL RESP TX SCH (07:27)
[2019-01-05] MEDS: DILTIAZEM 30 MG TABLET PO SCH (08:43)
[2019-01-05] MEDS: METOPROLOL TARTRATE 50 MG TABLET PEG SCH (08:43)
[2019-01-05] MEDS: LANSOPRAZOLE ODT 30 MG TABLET PER TUBE SCH (08:43)
[2019-01-05] MEDS: FLUCONAZOLE INJ 200 MG in PREMIX 1 EACH IV SCH (09:15)
[2019-01-05 12:46] VITALS: BP 122/81
== END 2019-01-05 17:51 | disposition home health service (06) | DRG 177 ==
LOC: EDUNIT# → N.ED 14:24 → SUATTDRO 23:29 → N.EDINP 23:29 → N.ICU 12-24 00:16 → N.5E 12-27 16:01
PROVIDERS: ADMIT Family Medicine; ATTEND Internal Medicine

== ENCOUNTER 2019-01-06 17:00 | Inpatient (IN) ==
[2019-01-06 21:35] LABS: Basophils % 0.1 % (0.0-0.8); Hematocrit 27.7 VOL% (42.0-52.0); Hemoglobin 8.6 GM/DL (14.0-18.0); Immature Granulocytes % 0.8 %; Immature Granulocytes Absolute 0.06 #; Lymphocytes # 1.8 10*3/uL (1.4-4.0); Lymphocytes % 23.4 % (21.2-54.2); Mean Platelet Volume 10.5 FL (9.6-12.0); Monocytes % 6.1 % (1.7-12.7); Neutrophils % 69.6 % (38.7-73.9); Platelet Count 294 T/CUMM (130-400); Red Blood Count 3.26 MC/CUMM (3.8-5.5); Red Cell Distribution Width 17.4 % (9.3-17.3); White Blood Count 7.9 T/CUMM (4-12)
[2019-01-06 21:57] LABS: Alanine Aminotransferase 26 U/L (16-61); Albumin 2.4 G/DL (3.4-5.0); Alkaline Phosphatase 58 U/L (45-117); Aspartate Amino Transferase 24 U/L (0-37); Bilirubin,Total < 0.39 MG/DL (0.2-1.0); Blood Urea Nitrogen 11 MG/DL (7-18); Calcium 8.9 MG/DL (8.5-10.1); Glucose 73 MG/DL (74-106); Osmolality,Calculated 270.8 MOS/KG (273-304)
[2019-01-06] MEDS: PIPERACILLIN/TAZOBACTAM 3,375 MG in SODIUM CHLORIDE 0.9% 100 ML IV SCH (22:29)
[2019-01-06] MEDS: ENOXAPARIN 40 MG/0.4 ML SYRINGE SUBCUT SCH (22:34)
[2019-01-07 00:28] LABS: Apearance,Urine CLEAR (Clear); Bacteria,Urine Occasional /HPF (Few); Bilirubin,Urine Negative (Negative); Blood, Urine Negative (Negative); Glucose,Urine (UA) Negative (Negative); Ketones,Urine 5 mg/dL (Negative); Mucus,Urine Occasional /LPF (Occasional); Nitrite,Urine Negative (Negative); Protein,Urine Negative; RBC,Urine 1 /HPF (0-4); Urine Color Yellow (Yellow); Urine Specific Gravity 1.012 (1.001-1.035); Urine Urobilinogen < 2.0 EU/DL (0.2-1.0); WBC,Urine 1 /HPF (0-6)
[2019-01-07] MEDS: ALBUTEROL/IPRATROPIUM 3 ML NEB RESP TX SCH ×3 (02:46→20:04)
[2019-01-07] MEDS: SODIUM CHLOR 0.9% KCL 40 MEQ 40 MEQ/1,000 ML BAG IV SCH ×4 (03:02→17:54)
[2019-01-07] MEDS: PIPERACILLIN/TAZOBACTAM 3,375 MG in SODIUM CHLORIDE 0.9% 100 ML IV SCH ×3 (03:04→20:40)
[2019-01-07] MEDS: VALPROIC ACID 250 MG/5 ML UDCUP PEG SCH ×3 (03:07→17:28)
[2019-01-07] MEDS: BUDESONIDE 0.5 MG/2 ML NEB RESP TX SCH ×2 (08:32→20:05)
[2019-01-07] MEDS: ACETYLCYSTEINE 20% 6,000 MG/30 ML VIAL RESP TX SCH ×2 (08:33→20:04)
[2019-01-07] MEDS ORDERED: DEXTROSE 50% 25 GM/50 ML VIAL IV PRN (08:46)
[2019-01-07] MEDS ORDERED: GLUCAGON 1 MG VIAL IM PRN (08:46)
[2019-01-07] MEDS ORDERED: predniSONE 20 MG TABLET PO SCH (09:00)
[2019-01-07] MEDS ORDERED: POTASSIUM CHLORIDE 20 MEQ PACK PEG SCH (09:00)
[2019-01-07] MEDS ORDERED: POTASSIUM IODIDE ORAL SOLN 1,000 MG/ML BOTTLE PEG SCH (09:00)
[2019-01-07] MEDS: GABAPENTIN 50 MG/ML 30 ML/BOTTLE PEG SCH ×3 (10:15→20:41)
[2019-01-07] MEDS: POTASSIUM CHLORIDE 20 MEQ PACK PEG SCH ×2 (10:15→20:40)
[2019-01-07] MEDS: FLUCONAZOLE 200 MG TABLET PO SCH (10:15)
[2019-01-07] MEDS: LANSOPRAZOLE ODT 30 MG TABLET PEG SCH (10:16)
[2019-01-07] MEDS: DILTIAZEM 30 MG TABLET PO SCH ×3 (10:16→20:41)
[2019-01-07] MEDS: NITROFURANTOIN MACROCRYSTALS 50 MG CAPSULE PEG SCH (10:17)
[2019-01-07] MEDS: predniSONE 20 MG TABLET PO SCH (10:18)
[2019-01-07] MEDS: METOPROLOL TARTRATE 50 MG TABLET PEG SCH ×2 (10:18→20:41)
[2019-01-07] MEDS: DIGOXIN 0.25 MG TABLET PEG SCH (17:28)
[2019-01-07] MEDS: ENOXAPARIN 40 MG/0.4 ML SYRINGE SUBCUT SCH (21:10)
[2019-01-08] MEDS: SODIUM CHLOR 0.9% KCL 40 MEQ 40 MEQ/1,000 ML BAG IV SCH ×3 (02:02→17:27)
[2019-01-08] MEDS: VALPROIC ACID 250 MG/5 ML UDCUP PEG SCH ×4 (02:57→17:26)
[2019-01-08] MEDS: PIPERACILLIN/TAZOBACTAM 3,375 MG in SODIUM CHLORIDE 0.9% 100 ML IV SCH ×3 (03:02→20:59)
[2019-01-08 06:45] LABS: Calcium 8.6 MG/DL (8.5-10.1)
[2019-01-08] MEDS: ALBUTEROL/IPRATROPIUM 3 ML NEB RESP TX SCH ×2 (08:15→19:56)
[2019-01-08] MEDS: ACETYLCYSTEINE 20% 6,000 MG/30 ML VIAL RESP TX SCH ×2 (08:15→19:57)
[2019-01-08] MEDS: BUDESONIDE 0.5 MG/2 ML NEB RESP TX SCH ×2 (08:16→19:56)
[2019-01-08] MEDS: METOPROLOL TARTRATE 50 MG TABLET PEG SCH ×2 (09:41→21:01)
[2019-01-08] MEDS: FLUCONAZOLE 200 MG TABLET PO SCH (09:41)
[2019-01-08] MEDS: POTASSIUM CHLORIDE 20 MEQ PACK PEG SCH ×2 (09:41→21:02)
[2019-01-08] MEDS: DILTIAZEM 30 MG TABLET PO SCH ×3 (09:42→21:01)
[2019-01-08] MEDS: predniSONE 20 MG TABLET PO SCH (09:42)
[2019-01-08] MEDS: GABAPENTIN 50 MG/ML 30 ML/BOTTLE PEG SCH ×3 (09:43→21:02)
[2019-01-08] MEDS: NITROFURANTOIN MACROCRYSTALS 50 MG CAPSULE PEG SCH (09:43)
[2019-01-08] MEDS: LANSOPRAZOLE ODT 30 MG TABLET PEG SCH (09:44)
[2019-01-08] MEDS: DIGOXIN 0.25 MG TABLET PEG SCH (16:28)
[2019-01-08] MEDS: ENOXAPARIN 40 MG/0.4 ML SYRINGE SUBCUT SCH (21:02)
[2019-01-09] MEDS: VALPROIC ACID 250 MG/5 ML UDCUP PEG SCH ×3 (01:16→20:02)
[2019-01-09] MEDS: PIPERACILLIN/TAZOBACTAM 3,375 MG in SODIUM CHLORIDE 0.9% 100 ML IV SCH ×2 (04:51→12:45)
[2019-01-09 06:06] LABS: Calcium 8.9 MG/DL (8.5-10.1); Osmolality,Calculated 276.3 MOS/KG (273-304); Prealbumin 27.6 MG/DL (20-40)
[2019-01-09] MEDS: ACETYLCYSTEINE 20% 6,000 MG/30 ML VIAL RESP TX SCH ×2 (07:33→19:26)
[2019-01-09] MEDS: BUDESONIDE 0.5 MG/2 ML NEB RESP TX SCH ×2 (07:33→19:26)
[2019-01-09] MEDS: ALBUTEROL/IPRATROPIUM 3 ML NEB RESP TX SCH ×2 (07:33→19:24)
[2019-01-09] MEDS: POTASSIUM CHLORIDE 20 MEQ PACK PEG SCH ×2 (09:00→21:26)
[2019-01-09] MEDS: DILTIAZEM 30 MG TABLET PO SCH ×3 (09:00→21:25)
[2019-01-09] MEDS: predniSONE 20 MG TABLET PO SCH (09:00)
[2019-01-09] MEDS: GABAPENTIN 50 MG/ML 30 ML/BOTTLE PEG SCH ×3 (09:00→21:26)
[2019-01-09] MEDS: METOPROLOL TARTRATE 50 MG TABLET PEG SCH ×2 (09:00→21:25)
[2019-01-09] MEDS ORDERED: LIDOCAINE 1%/EPI INJ 20 ML VIAL ONE (12:52)
[2019-01-09] MEDS: SODIUM CHLOR 0.9% KCL 40 MEQ 40 MEQ/1,000 ML BAG IV SCH (13:20)
[2019-01-09] MEDS ORDERED: SEVOFLURANE 1 UNIT/15 MINUTE INH ONE (15:05)
[2019-01-09] MEDS: LEVOFLOXACIN INJ 750 MG in PREMIX 1 EACH IV SCH (19:21)
[2019-01-09] MEDS: DIGOXIN 0.25 MG TABLET PEG SCH (19:24)
[2019-01-09] MEDS: NITROFURANTOIN MACROCRYSTALS 50 MG CAPSULE PEG SCH (19:24)
[2019-01-09] MEDS: LANSOPRAZOLE ODT 30 MG TABLET PEG SCH (19:25)
[2019-01-09] MEDS: ENOXAPARIN 40 MG/0.4 ML SYRINGE SUBCUT SCH (21:26)
[2019-01-10] MEDS: SODIUM CHLOR 0.9% KCL 40 MEQ 40 MEQ/1,000 ML BAG IV SCH ×3 (02:16→21:01)
[2019-01-10] MEDS: VALPROIC ACID 250 MG/5 ML UDCUP PEG SCH ×3 (03:00→17:25)
[2019-01-10] MEDS: ACETAMINOPHEN 325 MG TABLET PO PRN ×2 (06:50→10:52)
[2019-01-10] MEDS: BUDESONIDE 0.5 MG/2 ML NEB RESP TX SCH ×2 (07:24→19:37)
[2019-01-10] MEDS: ACETYLCYSTEINE 20% 6,000 MG/30 ML VIAL RESP TX SCH ×2 (07:24→19:37)
[2019-01-10] MEDS: ALBUTEROL/IPRATROPIUM 3 ML NEB RESP TX SCH ×2 (07:24→19:37)
[2019-01-10 08:55] LABS: Basophils % 0.1 % (0.0-0.8); Eosinophils % 0.1 % (0.00-10.9); Hematocrit 29.4 VOL% (42.0-52.0); Hemoglobin 9.3 GM/DL (14.0-18.0); Immature Granulocytes % 0.4 %; Immature Granulocytes Absolute 0.03 #; Lymphocytes # 1.8 10*3/uL (1.4-4.0); Lymphocytes % 24.6 % (21.2-54.2); Mean Corpuscular HGB Conc 31.6 GM/DL (32-36); Mean Corpuscular Volume 84.7 FL (87-102); Mean Platelet Volume 10.8 FL (9.6-12.0); Monocytes % 7.7 % (1.7-12.7); Neutrophils % 67.1 % (38.7-73.9); Platelet Count 312 T/CUMM (130-400); Red Blood Count 3.47 MC/CUMM (3.8-5.5); Red Cell Distribution Width 17.9 % (9.3-17.3); White Blood Count 7.2 T/CUMM (4-12)
[2019-01-10] MEDS: GABAPENTIN 50 MG/ML 30 ML/BOTTLE PEG SCH ×3 (10:51→21:03)
[2019-01-10] MEDS: DILTIAZEM 30 MG TABLET PO SCH ×3 (10:52→21:09)
[2019-01-10] MEDS: METOPROLOL TARTRATE 50 MG TABLET PEG SCH (10:52)
[2019-01-10] MEDS: POTASSIUM CHLORIDE 20 MEQ PACK PEG SCH ×2 (10:53→21:27)
[2019-01-10] MEDS: NITROFURANTOIN MACROCRYSTALS 50 MG CAPSULE PEG SCH (10:53)
[2019-01-10] MEDS: predniSONE 20 MG TABLET PO SCH ×2 (10:54→11:10)
[2019-01-10] MEDS: LANSOPRAZOLE ODT 30 MG TABLET PEG SCH (10:54)
[2019-01-10] MEDS ORDERED: predniSONE 10 MG TABLET PO ONE (11:30)
[2019-01-10] MEDS ORDERED: IBUPROFEN 800 MG TABLET PO PRN (11:45)
[2019-01-10] MEDS: DIGOXIN 0.25 MG TABLET PEG SCH (17:24)
[2019-01-10] MEDS: LEVOFLOXACIN INJ 750 MG in PREMIX 1 EACH IV SCH (17:25)
[2019-01-11] MEDS: METOPROLOL TARTRATE 50 MG TABLET PEG SCH ×3 (03:01→20:53)
[2019-01-11] MEDS: VALPROIC ACID 250 MG/5 ML UDCUP PEG SCH ×3 (03:02→17:41)
[2019-01-11] MEDS: ENOXAPARIN 40 MG/0.4 ML SYRINGE SUBCUT SCH ×2 (03:03→22:04)
[2019-01-11] MEDS: SODIUM CHLOR 0.9% KCL 40 MEQ 40 MEQ/1,000 ML BAG IV SCH ×4 (06:04→18:14)
[2019-01-11] MEDS: ALBUTEROL/IPRATROPIUM 3 ML NEB RESP TX SCH ×3 (07:59→19:13)
[2019-01-11] MEDS: ACETYLCYSTEINE 20% 6,000 MG/30 ML VIAL RESP TX SCH ×2 (08:00→19:13)
[2019-01-11] MEDS: BUDESONIDE 0.5 MG/2 ML NEB RESP TX SCH ×2 (08:00→19:13)
[2019-01-11] MEDS: GABAPENTIN 50 MG/ML 30 ML/BOTTLE PEG SCH ×3 (09:42→20:54)
[2019-01-11] MEDS: POTASSIUM CHLORIDE 20 MEQ PACK PEG SCH ×2 (09:42→20:53)
[2019-01-11] MEDS: NITROFURANTOIN MACROCRYSTALS 50 MG CAPSULE PEG SCH (09:43)
[2019-01-11] MEDS: predniSONE 20 MG TABLET PO SCH (09:43)
[2019-01-11] MEDS: DILTIAZEM 30 MG TABLET PO SCH ×3 (09:43→20:53)
[2019-01-11] MEDS: LANSOPRAZOLE ODT 30 MG TABLET PEG SCH (09:44)
[2019-01-11] MEDS: DIGOXIN 0.25 MG TABLET PEG SCH (12:58)
[2019-01-11] MEDS: LEVOFLOXACIN INJ 750 MG in PREMIX 1 EACH IV SCH (17:40)
[2019-01-12] MEDS: VALPROIC ACID 250 MG/5 ML UDCUP PEG SCH ×3 (02:49→17:10)
[2019-01-12] MEDS: SODIUM CHLOR 0.9% KCL 40 MEQ 40 MEQ/1,000 ML BAG IV SCH ×3 (05:22→18:00)
[2019-01-12] MEDS: ALBUTEROL/IPRATROPIUM 3 ML NEB RESP TX SCH ×2 (08:02→19:28)
[2019-01-12] MEDS: ACETYLCYSTEINE 20% 6,000 MG/30 ML VIAL RESP TX SCH ×2 (08:02→19:25)
[2019-01-12] MEDS: BUDESONIDE 0.5 MG/2 ML NEB RESP TX SCH ×2 (08:10→19:25)
[2019-01-12] MEDS: DILTIAZEM 30 MG TABLET PO SCH ×4 (09:12→21:22)
[2019-01-12] MEDS: METOPROLOL TARTRATE 50 MG TABLET PEG SCH ×2 (09:13→21:23)
[2019-01-12] MEDS: predniSONE 20 MG TABLET PO SCH (09:13)
[2019-01-12] MEDS: NITROFURANTOIN MACROCRYSTALS 50 MG CAPSULE PEG SCH (09:13)
[2019-01-12] MEDS: POTASSIUM CHLORIDE 20 MEQ PACK PEG SCH ×2 (09:13→21:23)
[2019-01-12] MEDS: LANSOPRAZOLE ODT 30 MG TABLET PEG SCH (09:14)
[2019-01-12] MEDS: GABAPENTIN 50 MG/ML 30 ML/BOTTLE PEG SCH ×3 (09:14→21:24)
[2019-01-12] MEDS: DIGOXIN 0.25 MG TABLET PEG SCH (13:51)
[2019-01-12] MEDS: LEVOFLOXACIN INJ 750 MG in PREMIX 1 EACH IV SCH (17:07)
[2019-01-12] MEDS: ENOXAPARIN 40 MG/0.4 ML SYRINGE SUBCUT SCH (21:25)
[2019-01-13] MEDS: VALPROIC ACID 250 MG/5 ML UDCUP PEG SCH ×3 (01:50→17:35)
[2019-01-13] MEDS: SODIUM CHLOR 0.9% KCL 40 MEQ 40 MEQ/1,000 ML BAG IV SCH (01:50)
[2019-01-13] MEDS: ALBUTEROL/IPRATROPIUM 3 ML NEB RESP TX SCH ×2 (07:20→19:26)
[2019-01-13] MEDS: ACETYLCYSTEINE 20% 6,000 MG/30 ML VIAL RESP TX SCH ×2 (07:20→19:26)
[2019-01-13] MEDS: BUDESONIDE 0.5 MG/2 ML NEB RESP TX SCH ×2 (07:20→19:26)
[2019-01-13 07:34] LABS: Calcium 8.8 MG/DL (8.5-10.1); Osmolality,Calculated 261.4 MOS/KG (273-304); Prealbumin 33.7 MG/DL (20-40)
[2019-01-13] MEDS: DILTIAZEM 30 MG TABLET PO SCH ×3 (09:35→21:00)
[2019-01-13] MEDS: NITROFURANTOIN MACROCRYSTALS 50 MG CAPSULE PEG SCH (09:35)
[2019-01-13] MEDS: LANSOPRAZOLE ODT 30 MG TABLET PEG SCH (09:36)
[2019-01-13] MEDS: METOPROLOL TARTRATE 50 MG TABLET PEG SCH ×2 (09:36→22:29)
[2019-01-13] MEDS: predniSONE 10 MG TABLET PO SCH (09:36)
[2019-01-13] MEDS: GABAPENTIN 50 MG/ML 30 ML/BOTTLE PEG SCH ×3 (09:39→21:00)
[2019-01-13] MEDS: POTASSIUM CHLORIDE 20 MEQ PACK PEG SCH (09:40)
[2019-01-13] MEDS: DIGOXIN 0.25 MG TABLET PEG SCH (14:47)
[2019-01-13] MEDS: LEVOFLOXACIN INJ 750 MG in PREMIX 1 EACH IV SCH (17:36)
[2019-01-13] MEDS: MELATONIN 3 MG TABLET PO SCH (21:00)
[2019-01-13] MEDS: ZALEPLON 5 MG CAPSULE PO SCH (21:00)
[2019-01-13] MEDS: ENOXAPARIN 40 MG/0.4 ML SYRINGE SUBCUT SCH (21:10)
[2019-01-14] MEDS: VALPROIC ACID 250 MG/5 ML UDCUP PEG SCH ×3 (01:49→18:16)
[2019-01-14] MEDS: ACETYLCYSTEINE 20% 6,000 MG/30 ML VIAL RESP TX SCH ×2 (07:35→19:13)
[2019-01-14] MEDS: BUDESONIDE 0.5 MG/2 ML NEB RESP TX SCH ×2 (07:35→19:13)
[2019-01-14] MEDS: ALBUTEROL/IPRATROPIUM 3 ML NEB RESP TX SCH ×2 (07:35→19:12)
[2019-01-14] MEDS: NITROFURANTOIN MACROCRYSTALS 50 MG CAPSULE PEG SCH (09:27)
[2019-01-14] MEDS: METOPROLOL TARTRATE 50 MG TABLET PEG SCH ×2 (09:27→21:19)
[2019-01-14] MEDS: predniSONE 10 MG TABLET PO SCH (09:27)
[2019-01-14] MEDS: DILTIAZEM 30 MG TABLET PO SCH ×3 (09:27→21:18)
[2019-01-14] MEDS: LANSOPRAZOLE ODT 30 MG TABLET PEG SCH (09:28)
[2019-01-14] MEDS: GABAPENTIN 50 MG/ML 30 ML/BOTTLE PEG SCH ×3 (09:28→21:23)
[2019-01-14] MEDS: DIGOXIN 0.25 MG TABLET PEG SCH (15:39)
[2019-01-14] MEDS: LEVOFLOXACIN INJ 750 MG in PREMIX 1 EACH IV SCH (18:15)
[2019-01-14] MEDS: MELATONIN 3 MG TABLET PO SCH (21:19)
[2019-01-14] MEDS: ENOXAPARIN 40 MG/0.4 ML SYRINGE SUBCUT SCH (21:19)
[2019-01-14] MEDS: ZALEPLON 5 MG CAPSULE PO SCH (21:19)
[2019-01-15] MEDS: VALPROIC ACID 250 MG/5 ML UDCUP PEG SCH ×3 (01:21→17:02)
[2019-01-15] MEDS: ALBUTEROL/IPRATROPIUM 3 ML NEB RESP TX SCH ×2 (07:06→19:12)
[2019-01-15] MEDS: ACETYLCYSTEINE 20% 6,000 MG/30 ML VIAL RESP TX SCH ×2 (07:07→19:14)
[2019-01-15] MEDS: BUDESONIDE 0.5 MG/2 ML NEB RESP TX SCH ×2 (07:07→19:14)
[2019-01-15] MEDS: predniSONE 10 MG TABLET PO SCH (09:02)
[2019-01-15] MEDS: DILTIAZEM 30 MG TABLET PO SCH ×3 (09:02→21:32)
[2019-01-15] MEDS: LANSOPRAZOLE ODT 30 MG TABLET PEG SCH (09:05)
[2019-01-15] MEDS: NITROFURANTOIN MACROCRYSTALS 50 MG CAPSULE PEG SCH (09:05)
[2019-01-15] MEDS: METOPROLOL TARTRATE 50 MG TABLET PEG SCH ×2 (09:05→21:32)
[2019-01-15] MEDS: GABAPENTIN 50 MG/ML 30 ML/BOTTLE PEG SCH ×3 (09:07→21:32)
[2019-01-15 09:20] LABS: Calcium 9.2 MG/DL (8.5-10.1); Osmolality,Calculated 267.5 MOS/KG (273-304)
[2019-01-15] MEDS: POTASSIUM CHLORIDE 20 MEQ TABLET PO PRN ×2 (14:27→17:02)
[2019-01-15] MEDS: DIGOXIN 0.25 MG TABLET PEG SCH (14:29)
[2019-01-15] MEDS: LEVOFLOXACIN INJ 750 MG in PREMIX 1 EACH IV SCH (17:01)
[2019-01-15] MEDS: MELATONIN 3 MG TABLET PO SCH (21:32)
[2019-01-15] MEDS: ZALEPLON 5 MG CAPSULE PO SCH (21:32)
[2019-01-15] MEDS: ENOXAPARIN 40 MG/0.4 ML SYRINGE SUBCUT SCH (22:21)
[2019-01-16] MEDS: VALPROIC ACID 250 MG/5 ML UDCUP PEG SCH ×2 (02:54→09:25)
[2019-01-16] MEDS: ALBUTEROL/IPRATROPIUM 3 ML NEB RESP TX SCH (08:21)
[2019-01-16] MEDS: BUDESONIDE 0.5 MG/2 ML NEB RESP TX SCH (08:21)
[2019-01-16] MEDS: ACETYLCYSTEINE 20% 6,000 MG/30 ML VIAL RESP TX SCH (08:21)
[2019-01-16] MEDS: METOPROLOL TARTRATE 50 MG TABLET PEG SCH (09:11)
[2019-01-16] MEDS: NITROFURANTOIN MACROCRYSTALS 50 MG CAPSULE PEG SCH (09:11)
[2019-01-16] MEDS: predniSONE 10 MG TABLET PO SCH (09:11)
[2019-01-16] MEDS: DILTIAZEM 30 MG TABLET PO SCH ×2 (09:11→14:43)
[2019-01-16] MEDS: GABAPENTIN 50 MG/ML 30 ML/BOTTLE PEG SCH ×3 (09:12→14:44)
[2019-01-16] MEDS: LANSOPRAZOLE ODT 30 MG TABLET PEG SCH (09:12)
[2019-01-16] MEDS: POTASSIUM CHLORIDE 20 MEQ/15 ML UDCUP PER TUBE PRN ×2 (09:25→11:09)
[2019-01-16 11:55] VITALS: BP 119/64
[2019-01-16] MEDS: DIGOXIN 0.25 MG TABLET PEG SCH (14:43)
== END 2019-01-16 16:03 | disposition home health service (06) | DRG 871 ==
LOC: N.5E → OBSVTOIN 19:13
PROVIDERS: ADMIT Internal Medicine; ATTEND Internal Medicine